=== PATIENT | female | born 1945 | race Caucasian/White ===

== ENCOUNTER 2020-09-23 11:25 | Inpatient (IN) | payer OTHER, SELFPAY ==
[~2020-09-23] VITALS: Ht 162.6 cm; Wt 98.9 kg
[2020-09-23 11:30] VITALS: BP 179/77
--- NOTE | 2020-09-23 11:35 | NUR ---
PT AMB TO BED 4.
--- NOTE | 2020-09-23 11:45 | NUR ---
PT C/O INTERMITTENT RUQ ABDOMINAL PAIN WITH DISTENDED ABDOMEN AND CONSTIPATION FOR THE PAST 3 MONTHS. PT ALSO REPORTS HAVING SOB, +2 PITTING EDEMA ON MINNA ANKLES, AND MOIST COUGH. DENIES N/V/D, FEVER, CHEST PAIN, OR SICK CONTACTS. PT STATES SHE HAD SURGERY 1.5 YEARS AGO ON THE MINNA LOWER LEG BECAUSE HER DR TOLD HER THAT THE SOB IS DUE TO THE POOR CIRCULATION OF THE LEGS. PT CANNOT RECALL THE SURGERY NAME OR THE MEDS THAT SHE IS TAKING FOR HER HEART CONDITION, HTN, OR DM. PMH: DM, HEART CONDITION (PT CANNOT RECALL), HTN, ASTHMA
[2020-09-23] MEDS ORDERED: ALUMINUM HYD/MAG/SIMETHICONE 30 ML UDC PO ONE (12:10)
[2020-09-23] MEDS ORDERED: DICYCLOMINE HCL LIQUID 10 MG/5 ML UDC PO ONE (12:10)
[2020-09-23] MEDS ORDERED: FAMOTIDINE 20 MG TAB PO ONE (12:10)
[2020-09-23 12:23] LABS: BASOPHILS % (AUTO) 0.7 % (0.0-2.0); EOSINOPHILS # (AUTO) 0.2 K/uL (0-0.4); EOSINOPHILS % (AUTO) 3.6 % (0.0-4.0); HEMATOCRIT 35.9 % (36-48); HEMOGLOBIN 11.8 g/dL (12.0-16.0); LYMPHOCYTES # (AUTO) 1.3 K/uL (2.5-16.5); LYMPHOCYTES % (AUTO) 20.9 % (20.5-51.1); MEAN CORPUSCULAR HEMOGLOBIN 30 pg (27-31); MEAN CORPUSCULAR HGB CONC 33 g/dL (33-37); MONOCYTES # (AUTO) 0.6 K/uL (0.8-1.0); MONOCYTES % (AUTO) 9.6 % (1.7-9.3); NEUTROPHILS # (AUTO) 4.1 K/uL (1.8-7.7); NEUTROPHILS % (AUTO) 65.2 % (42.2-75.2); PLATELET COUNT (AUTO) 176 K/uL (140-450); RED BLOOD CELL COUNT(AUTO) 3.91 MIL/uL (4.20-5.40); RED CELL DISTRIBUTION WIDTH 14.5 % (11.6-13.7); WHITE BLOOD COUNT (AUTO) 6.3 K/uL (4.8-10.8)
[2020-09-23 12:49] LABS: ALBUMIN 3.4 g/dL (3.4-5.0); ASPARTATE AMINOTRANSFERASE 20 U/L (15-37); CARBON DIOXIDE 23.1 mmol/L (21-32); CHLORIDE 107 mmol/L (98-107); CREATININE 1.1 mg/dL (0.6-1.3); GLUCOSE 112 mg/dL (74-106); LIPASE 65 U/L (73-393); POTASSIUM 4.1 mmol/L (3.5-5.1); SODIUM SERUM 143 mmol/L (136-145); TOTAL BILIRUBIN 0.7 mg/dL (0.0-1.0); UREA NITROGEN, BLOOD 19 mg/dL (7-18)
--- NOTE | 2020-09-23 13:42 | NUR ---
PT HAS BEEN TAKING BACK FROM CT SCAN VIA .
[2020-09-23] MEDS ORDERED: FUROSEMIDE 40 MG/4 ML VIAL IVP ONE (14:10)
--- NOTE | 2020-09-23 14:27 | NUR ---
PT'S DAUGHTER RAFAEL'S PHONE # [phone] REQUESTED FOR MEDICAL UPDATES. CALLED AND LEFT MESSAGE.
[2020-09-23] MEDS ORDERED: PRIM250T70 PO (15:03)
[2020-09-23] MEDS ORDERED: POTA8TER12 PO (15:03)
[2020-09-23] MEDS ORDERED: LEVO5TAB12 PO (15:03)
[2020-09-23] MEDS ORDERED: CELE200C PO (15:03)
[2020-09-23] MEDS ORDERED: GLIM2TAB PO (15:03)
[2020-09-23] MEDS ORDERED: [UNRECOGNIZED DRUG - CODE] TP (15:03)
[2020-09-23] MEDS ORDERED: ISOS10TA9 PO (15:03)
[2020-09-23] MEDS ORDERED: ASCO-516 PO (15:03)
[2020-09-23] MEDS ORDERED: DONE5TAB6 PO (15:03)
[2020-09-23] MEDS ORDERED: FURO-572 PO (15:03)
[2020-09-23] MEDS ORDERED: EMPA25TA PO (15:03)
[2020-09-23] MEDS ORDERED: ALBU-118 INH (15:03)
[2020-09-23] MEDS ORDERED: MONT10TA35 PO (15:03)
[2020-09-23] MEDS ORDERED: SITA100T8 PO (15:03)
[2020-09-23] MEDS ORDERED: ASPI-1822 PO (15:03)
[2020-09-23] MEDS ORDERED: BENA20TA PO (15:03)
[2020-09-23] MEDS ORDERED: IBAN150T16 PO (15:03)
[2020-09-23] MEDS ORDERED: VITA-415 PO (15:03)
[2020-09-23] MEDS ORDERED: SULF500T6 PO (15:03)
[2020-09-23] MEDS ORDERED: [UNRECOGNIZED DRUG - CODE] PO (15:03)
[2020-09-23] MEDS ORDERED: DICL1GEL19 TP (15:03)
[2020-09-23] MEDS ORDERED: ATOR10TA PO (15:03)
[2020-09-23] MEDS ORDERED: FLUT1POW3 IH (15:03)
[2020-09-23] MEDS ORDERED: LYR75 PO (15:03)
[2020-09-23] MEDS ORDERED: OMEP20EC11 PO (15:03)
--- NOTE | 2020-09-23 15:45 | NUR ---
PT AMBULATES TO THE BATHROOM WITH STEADY GAIT.
[2020-09-23] MEDS ORDERED: MORPHINE SULFATE 2 MG/ML SYR IVP PRN (16:30)
[2020-09-23] MEDS ORDERED: INSULIN LISPRO SLIDING SCALE 100 UNITS/ML VIAL SUBQ PRN (16:30)
[2020-09-23] MEDS ORDERED: ACETAMINOPHEN 325 MG TAB PO PRN (16:30)
[2020-09-23] MEDS ORDERED: DEXTROSE 50% 50 ML SYR IVP PRN (16:30)
[2020-09-23] MEDS ORDERED: ONDANSETRON 4 MG/2 ML VIAL IVP PRN (16:30)
--- NOTE | 2020-09-23 16:38 | NUR ---
Dr. Taylor is evaluating the patient at bedside.
[2020-09-23 17:01] LABS: CREATINE KINASE MB 2.2 ng/mL (0-3.6)
--- NOTE | 2020-09-23 18:50 | NUR ---
DINNER PROVIDED TO PT. PT IS EATING IN THE BED.
--- NOTE | 2020-09-23 19:08 | NUR ---
RECEIVED REPORT FROM DERIAN TAI AND [facility]
--- NOTE | 2020-09-23 19:16 | NUR ---
REPORT GIVEN TO DERIAN BLANDON.
[2020-09-23] MEDS: BLOOD GLUCOSE MONITORING 1 DEV DEV FS SCH ×2 (21:18→21:23)
--- NOTE | 2020-09-24 00:05 | NUR ---
Patient will be admitted to care of DR LARSEN. Admited to [facility]. Will go to room 105B. Belongings list completed. Report to DERIAN CAMARENA.
--- NOTE | 2020-09-24 00:12 | NUR ---
RECEIVED PT FROM ED NURSE. PT ARRIVED ON THE UNIT VIA GURNEY BUT AMBULATED TO THE BED. PT IS A/OX4, SPEECH IS CLEAR, HEAD IS NORMAL CEPHALIC, EQUAL BILATERAL EYEBROWS, SYMMETRICAL SMILE, PMMM. NO JVD NOTED AT THIS TIME. CHEST IS SYMMETRICAL, BREATHING SPONTANEOUSLY, EQUAL, AND UNLABORED ON 2L 02 VIA NC. ABD IS SOFT AND NONTENDER. SKIN IS WARM, DRY, INTACT, 18G IV TO LEFT AC, PATENT, ASYMPTOMATIC. NORMAL SKIN TURGOR NOTED. TELE MONITOR ATTACHED. ORIENTED PT TO ROOM, CALL LIGHT , AND STAFF. MRSA SCREEN COMPLETE. SAFETY PRECAUTIONS IN PLACE.
--- NOTE | 2020-09-24 01:09 | NUR ---
PT IS SLEEPING, NO SIGNS OF DISTRESS.
[2020-09-24 02:49] LABS: CREATINE KINASE MB 1.5 ng/mL (0-3.6)
--- NOTE | 2020-09-24 03:01 | NUR ---
PT IS SLEEPING.
[2020-09-24 04:00] VITALS: BP 128/98
[2020-09-24 06:56] LABS: BASOPHILS # (AUTO) 0.1 K/uL (0.00-0.22); BASOPHILS % (AUTO) 0.8 % (0.0-2.0); EOSINOPHILS # (AUTO) 0.3 K/uL (0-0.4); EOSINOPHILS % (AUTO) 3.9 % (0.0-4.0); HEMATOCRIT 37.4 % (36-48); HEMOGLOBIN 12.4 g/dL (12.0-16.0); LYMPHOCYTES # (AUTO) 1.2 K/uL (2.5-16.5); LYMPHOCYTES % (AUTO) 17.1 % (20.5-51.1); MEAN CORPUSCULAR HEMOGLOBIN 31 pg (27-31); MEAN CORPUSCULAR HGB CONC 33 g/dL (33-37); MEAN CORPUSCULAR VOLUME 92.2 fL (80-94); MONOCYTES # (AUTO) 0.6 K/uL (0.8-1.0); MONOCYTES % (AUTO) 9.3 % (1.7-9.3); NEUTROPHILS # (AUTO) 4.7 K/uL (1.8-7.7); NEUTROPHILS % (AUTO) 68.9 % (42.2-75.2); PLATELET COUNT (AUTO) 178 K/uL (140-450); RED BLOOD CELL COUNT(AUTO) 4.05 MIL/uL (4.20-5.40); RED CELL DISTRIBUTION WIDTH 14.4 % (11.6-13.7); WHITE BLOOD COUNT (AUTO) 6.8 K/uL (4.8-10.8)
[2020-09-24 07:21] LABS: ALBUMIN 3.5 g/dL (3.4-5.0); ANION GAP 15.4 (8-16); ASPARTATE AMINOTRANSFERASE 24 U/L (15-37); CARBON DIOXIDE 27.7 mmol/L (21-32); CHLORIDE 105 mmol/L (98-107); CREATININE 1.1 mg/dL (0.6-1.3); GLUCOSE 91 mg/dL (74-106); MAGNESIUM 1.9 mg/dL (1.8-2.4); POTASSIUM 4.1 mmol/L (3.5-5.1); SODIUM SERUM 144 mmol/L (136-145); TOTAL BILIRUBIN 0.8 mg/dL (0.0-1.0); UREA NITROGEN, BLOOD 18 mg/dL (7-18)
--- NOTE | 2020-09-24 07:30 | NUR ---
RECEIVED REPORT FROM BOTTLE CASER NURSE. PATIENT LYING DOWN IN BED SLEEPING, AROUSABLE BY VOICE. NO DISTRESS NOTED. DENIES ANY PAIN. AAOX4, CALM, COOPERATIVE, APPROPRIATE AFFECT. SKIN COLOR APPROPRIATE TO ETHNICITY, WARM TO TOUCH, SKIN INTACT. IV SITE INTACT, PATENT, AND ON SALINE LOCK. RESPIRATIONS EVEN, UNLABORED, ON ROOM AIR. REVIEWED PLAN OF CARE WITH PATIENT. PATIENT VERBALIZED UNDERSTANDING. SAFETY MEASURES IN PLACE, CALL LIGHT WITHIN REACH. WILL CONTINUE TO MONITOR.
[2020-09-24] MEDS: BLOOD GLUCOSE MONITORING 1 DEV DEV FS SCH ×4 (07:44→20:33)
--- NOTE | 2020-09-24 07:53 | NUR ---
ENDORSED CARE TO AM NURSE. PT IS IN STABLE CONDITION.
[2020-09-24 08:00] VITALS: BP 166/80
[2020-09-24] MEDS ORDERED: BENAZEPRIL 10 MG TAB PO SCH (09:00)
[2020-09-24] MEDS: ASPIRIN 81 MG TAB.CHEW PO SCH (09:03)
[2020-09-24] MEDS: FUROSEMIDE 40 MG/4 ML VIAL IVP SCH ×2 (09:03→20:42)
[2020-09-24] MEDS: ENOXAPARIN 40 MG/0.4 ML SYR SUBQ SCH (09:09)
[2020-09-24 11:25] LABS: CREATINE KINASE MB 1.4 ng/mL (0-3.6)
[2020-09-24] MEDS ORDERED: PSYLLIUM 12.2 GM/PKT PO PRN (11:50)
[2020-09-24 12:00] VITALS: BP 125/63
--- NOTE | 2020-09-24 12:13 | NUR ---
SCHEDULED MEDICATIONS DUE GIVEN. WILL CONTINUE TO MONITOR.
--- NOTE | 2020-09-24 14:53 | NUR ---
PATIENT COMPLAINS OF A HEADACHE, TYLENOL GIVEN AT THIS TIME. WILL CONTINUE TO MONITOR.
[2020-09-24 16:00] VITALS: BP 127/56
--- NOTE | 2020-09-24 17:32 | NUR ---
PATIENT LYING DOWN IN BED. NO COMPLAINTS OF HEADACHE. WILL CONTINUE TO MONITOR.
--- NOTE | 2020-09-24 18:39 | NUR ---
PATIENT COMPLAINS OF CONSTIPATION. METAMUCIL GIVEN AT THIS TIME. WILL CONTINUE TO MONITOR.
--- NOTE | 2020-09-24 19:00 | NUR ---
HD NURSE AT BEDSIDE TO START HEMODIALYSIS. WILL CONTINUE TO MONITOR.
--- NOTE | 2020-09-24 19:20 | NUR ---
GAVE REPORT TO MILK WAGON DRIVER NURSE FOR CONTINUITY OF CARE. PATIENT IN STABLE CONDITION.
--- NOTE | 2020-09-24 19:21 | NUR ---
RECEIVED BEDSIDE ENDORSEMENT FROM AM SHIFT RN. PT IS AAOX4, SITTING ON BED, ON ROOM AIR, NO SOB, LAC 18, INTACT, AMBULATORY, DENIES PAIN, SAFETY MEASURES IN PLACE, PLAN OF CARE DISCUSSED, CALL LIGHT WITHIN REACH.
[2020-09-24 20:00] VITALS: BP_SYST 120; BP_DIAS 61; BP_DIAS 67
[2020-09-24] MEDS: PREGABALIN 25 MG CAP PO SCH (20:39)
[2020-09-24] MEDS: carvediloL 3.125 MG TAB PO SCH (20:39)
--- NOTE | 2020-09-24 20:47 | NUR ---
DUE MEDS GIVEN ORDERED, LASIX NOT GIVEN, BP IS 106/72 HR 70. PT REFUSED HUMALOG 2 UNITS, EXPLAINED RISKS AND BENEFITS, STILL REFUSES. NO DISTRESS. CALL LIGHT WITHIN REACH.
[2020-09-24] MEDS ORDERED: DONEPEZIL 10 MG TAB PO SCH (21:00)
[2020-09-25] VITALS: BP 116/68
--- NOTE | 2020-09-25 | NUR ---
PT SLEEPING ,RESPIRATION EVEN AND UNLABORED.
[2020-09-25 04:00] VITALS: BP 122/63
--- NOTE | 2020-09-25 06:41 | NUR ---
PATIENT HAS BEEN SCREENED AND CATEGORIZED HIGH NUTRITION RISK. PATIENT WILL BE SEEN WITHIN 1-2 DAYS OF ADMISSION. 09/25/20-09/26/20 CELIA GRAHAM MS, RDN
[2020-09-25] MEDS: BLOOD GLUCOSE MONITORING 1 DEV DEV FS SCH ×2 (07:00→11:12)
--- NOTE | 2020-09-25 07:01 | NUR ---
BS 143, NO COVERAGE GIVEN. PT AWAKE, NO DISTRESS, DENIES PAIN, NO SOB, CALL LIGHT WITHIN REACH.
--- NOTE | 2020-09-25 07:02 | NUR ---
RECEIVED REPORT FROM MANAGEMENT SPECIALIST NURSE. PATIENT LYING DOWN IN BED SLEEPING, AROUSABLE BY VOICE. NO DISTRESS NOTED. DENIES ANY PAIN. AAOX4, CALM, COOPERATIVE, APPROPRIATE AFFECT. SKIN COLOR APPROPRIATE TO ETHNICITY, WARM TO TOUCH, SKIN INTACT. IV SITE INTACT, PATENT, AND ON SALINE LOCK. RESPIRATIONS EVEN, UNLABORED, ON ROOM AIR. REVIEWED PLAN OF CARE WITH PATIENT. PATIENT VERBALIZED UNDERSTANDING. SAFETY MEASURES IN PLACE, CALL LIGHT WITHIN REACH. WILL CONTINUE TO MONITOR.
[2020-09-25 08:00] VITALS: BP 137/77
[2020-09-25 08:09] LABS: BASOPHILS % (AUTO) 0.8 % (0.0-2.0); EOSINOPHILS # (AUTO) 0.2 K/uL (0-0.4); HEMATOCRIT 38.9 % (36-48); LYMPHOCYTES # (AUTO) 1.5 K/uL (2.5-16.5); MEAN CORPUSCULAR HEMOGLOBIN 31 pg (27-31); MEAN CORPUSCULAR HGB CONC 34 g/dL (33-37); MEAN CORPUSCULAR VOLUME 91.9 fL (80-94); MONOCYTES # (AUTO) 0.6 K/uL (0.8-1.0); MONOCYTES % (AUTO) 10.8 % (1.7-9.3); NEUTROPHILS # (AUTO) 3.4 K/uL (1.8-7.7); NEUTROPHILS % (AUTO) 58.4 % (42.2-75.2); PLATELET COUNT (AUTO) 186 K/uL (140-450); RED BLOOD CELL COUNT(AUTO) 4.24 MIL/uL (4.20-5.40); RED CELL DISTRIBUTION WIDTH 14.7 % (11.6-13.7); WHITE BLOOD COUNT (AUTO) 5.8 K/uL (4.8-10.8)
[2020-09-25 08:13] LABS: ANION GAP 17.9 (8-16); CARBON DIOXIDE 26.8 mmol/L (21-32); CHLORIDE 101 mmol/L (98-107); CREATININE 1.1 mg/dL (0.6-1.3); GLUCOSE 137 mg/dL (74-106); POTASSIUM 3.7 mmol/L (3.5-5.1); SODIUM SERUM 142 mmol/L (136-145); UREA NITROGEN, BLOOD 20 mg/dL (7-18)
[2020-09-25] MEDS: ENOXAPARIN 40 MG/0.4 ML SYR SUBQ SCH (08:32)
[2020-09-25] MEDS: carvediloL 3.125 MG TAB PO SCH (08:35)
[2020-09-25] MEDS: PREGABALIN 25 MG CAP PO SCH (08:35)
[2020-09-25] MEDS: FUROSEMIDE 40 MG/4 ML VIAL IVP SCH (08:35)
[2020-09-25] MEDS: ASPIRIN 81 MG TAB.CHEW PO SCH (08:35)
--- NOTE | 2020-09-25 08:41 | NUR ---
SCHEDULED MEDICATIONS DUE GIVEN. WILL CONTINUE TO MONITOR.
[2020-09-25] MEDS ORDERED: BENAZEPRIL 10 MG TAB PO SCH (09:00)
[2020-09-25] MEDS ORDERED: PANTOPRAZOLE 40 MG TABEC PO SCH (09:00)
--- NOTE | 2020-09-25 11:12 | NUR ---
PATIENT SITTING IN BED TALKING ON HER PHONE. NO DISTRESS NOTED. CONDITION UNCHANGED. WILL CONTINUE TO MONITOR.
[2020-09-25] MEDS ORDERED: APIX5TAB PO (11:31)
[2020-09-25] MEDS ORDERED: FURO-570 PO (11:31)
[2020-09-25 12:00] VITALS: BP 98/56
--- NOTE | 2020-09-25 12:30 | NUR ---
DISCHARGE INSTRUCTIONS PROVIDED TO PATIENT IN PREFERRED LANGUAGE OF [place]. INSTRUCTIONS ON FOLLOW-UP WITH PCP AND RESEARCH DAIRY FARM SUPERVISOR, NEW/CHANGED MEDICATION REGIMEN AND SIDE EFFECTS, DIET REGIMEN, AND CHF EXACERBATION DISEASE PROCESS/MANAGEMENT. ANSWERED ALL OF PATIENT'S QUESTIONS REGARDING DISCHARGE. IV SITE REMOVED WITH MINIMAL BLOOD AND LUMEN COMPLETELY INTACT. IB BANDS REMOVED. PATIENT TO EAT LUNCH AND THEN DRIVE HER SELF HOME. WILL CONTINUE TO MONITOR.
--- NOTE | 2020-09-25 13:45 | NUR ---
ESCORTED PATIENT DOWN TO ER PARKING LOT WITH STEADY AMBULATION. PATIENT DISCHARGED AT THIS TIME TO HOME IN STABLE CONDITION.
== END 2020-09-25 13:45 | disposition home or self-care (01) | DRG 291 ==
LOC: MED 11:25 → MTU 16:30
PROVIDERS: ADMIT Internal Medicine; ATTEND Internal Medicine
DX: I11.0 Hypertensive heart disease with heart failure (principal); J96.01 Acute respiratory failure with hypoxia; I50.30 Unspecified diastolic (congestive) heart failure; E11.9 Type 2 diabetes mellitus without complications; E78.00 Pure hypercholesterolemia, unspecified; I48.91 Unspecified atrial fibrillation; K57.30 Diverticulosis of large intestine without perforation or abscess without bleeding; G47.30 Sleep apnea, unspecified; E78.5 Hyperlipidemia, unspecified; E66.01 Morbid (severe) obesity due to excess calories; R25.1 Tremor, unspecified; Z20.828 Contact with and (suspected) exposure to other viral communicable diseases; Z79.899 Other long term (current) drug therapy; Z79.82 Long term (current) use of aspirin; Z68.37 Body mass index [BMI] 37.0-37.9, adult
CPT/HCPCS: 36415; 71045; 80048; 80053; 82550; 82553; 82948; 83690; 83735; 83880; 84484; 85025; 87081; 93005; 96374; 99285; J1650; J1940; Q9967

== ENCOUNTER 2021-09-04 10:17 | Emergency (ER) | payer OTHER, SELFPAY ==
[~2021-09-04] VITALS: Ht 162.6 cm; Wt 98.4 kg
[~2021-09-04 10:17] MED LIST: ALBU-118 INH; APIX5TAB PO; ASCO-516 PO; ATOR10TA PO; BENA20TA PO; DONE5TAB6 PO; EMPA25TA PO; FLUT1POW3 IH; FURO-570 PO; GLIM2TAB PO; IBAN150T16 PO; LEVO5TAB12 PO; LYR75 PO; MONT10TA35 PO; OMEP20EC11 PO; POTA8TAB19 PO; PRIM250T70 PO; SITA100T8 PO; SULF500T6 PO; VITA-415 PO; [UNRECOGNIZED DRUG - CODE] PO
[2021-09-04 10:21] VITALS: BP 153/81
--- NOTE | 2021-09-04 10:40 | NUR ---
ERMD at bedside to assess pt
[2021-09-04] MEDS ORDERED: HYDROcodone/APAP 10/325 MG 1 TAB TAB PO STA (10:41)
--- NOTE | 2021-09-04 11:03 | NUR ---
Pt taken to radiology for XRAYs
--- NOTE | 2021-09-04 11:30 | NUR ---
Pt returned from radiology in stable condition
[2021-09-04] MEDS ORDERED: ACET-10509 PO (12:12)
[2021-09-04 12:34] VITALS: BP 142/78
--- NOTE | 2021-09-04 12:34 | NUR ---
Patient discharged with v/s stable. Written and verbal after care instructions given and explained WITH TEACHBACK. Patient alert, oriented and verbalized understanding of instructions. Ambulatory with steady gait. All questions addressed prior to discharge. ID band removed. Patient advised to follow up with PMD. Rx of ACETAMINOPHEN given. Patient educated on indication of medication including possible reaction and side effects. Opportunity to ask questions provided and answered.
== END 2021-09-04 12:34 | disposition home or self-care (01) ==
LOC: MED 10:17
DX: S90.121A Contusion of right lesser toe(s) without damage to nail, initial encounter (principal); S20.211A Contusion of right front wall of thorax, initial encounter; M25.511 Pain in right shoulder; J45.909 Unspecified asthma, uncomplicated; E11.9 Type 2 diabetes mellitus without complications; I10 Essential (primary) hypertension; Z79.899 Other long term (current) drug therapy; Z79.01 Long term (current) use of anticoagulants; W18.2XXA Fall in (into) shower or empty bathtub, initial encounter; Y93.89 Activity, other specified; Y92.002 Bathroom of unspecified non-institutional (private) residence as the place of occurrence of the external cause; Y99.8 Other external cause status
CPT/HCPCS: 71101; 73030; 73630; 99284

== ENCOUNTER 2022-01-15 18:49 | Emergency (ER) | payer OTHER ==
[~2022-01-15] VITALS: Ht 162.6 cm; Wt 94.8 kg
[~2022-01-15 18:49] MED LIST changes: +ACET-10509 PO
[2022-01-15 19:11] VITALS: BP 185/89
[2022-01-15] MEDS ORDERED: TRANEXAMIC ACID 1,000 MG/10 ML VIAL MC ONE (20:25)
--- NOTE | 2022-01-15 23:47 | NUR ---
76 YO/F BIB SELF W C/O BACK UPPER GUM BLEEDING X3 DAYS CONSTANT S/P HAVING CROWNS PLACED IN IN MAY 2021. PT REPORTS BLEEDING WAS ONLY OCCURING WHEN BRUSHING TEETH BUT HAS WORSENED SINCE SATURDAY, SAW PRIMARY DENTIST AND HAD A "PORCELAIN SUBSTANCE PLACED" WHICH HELPED A BIT WITH THE BLEEDING BUT THE THE PORCELAIN FELL OUT AND CONSTANT BLEEDING RE-OCCURED. PT DENIES ANY PAIN, N/V, FEVER, CHILLS. DIZZYNESS OR OTHER SYMPTOMS AT THIS TIME. PT NOTED W ACTIVE BLEEDING FROM L UPPER GUMS W SMALL BLOOD CLOTS. PT DENIES INJURY TO MOUTH/GUMS. PT PROVIDED W GAUZE, ADVISED TO APPLY CONTINUOUS PRESSURE. ERMD MADE AWARE. PMH: HTN, DIABETES, FIBROMYALGIA, RHEUMATOID ALLERGIES: DENIES
--- NOTE | 2022-01-16 00:01 | NUR ---
PT DENIES BEING ON BLOOD THINNERS.
--- NOTE | 2022-01-16 00:35 | NUR ---
PT HAS ONGOING CONTINOUS BLEEING TO GUMS W CLOTS. ERMD MADE AWARE.
[2022-01-16] MEDS ORDERED: LIDOCAINE/EPI 1% 1:100000 20 ML VIAL INJ ONE (01:00)
[2022-01-16] MEDS ORDERED: TRANEXAMIC ACID 1,000 MG/10 ML VIAL MC ONE (01:40)
--- NOTE | 2022-01-16 03:14 | NUR ---
PT REPORTS BLEEDING HAS SLOWED. NO OTHER SYMPTOMS.
[2022-01-16 03:40] VITALS: BP 119/78
--- NOTE | 2022-01-16 03:40 | NUR ---
Patient discharged with v/s stable. Written and verbal after care instructions given and explained. Patient verbalized understanding. Ambulatory with steady gait. All questions addressed prior to discharge. Advised to follow up with PMD.
== END 2022-01-16 03:40 | disposition home or self-care (01) ==
LOC: MED 18:49
DX: K06.8 Other specified disorders of gingiva and edentulous alveolar ridge (principal); K91.841 Postprocedural hemorrhage of a digestive system organ or structure following other procedure; I10 Essential (primary) hypertension
CPT/HCPCS: 99283; J2001; J3490

== ENCOUNTER 2022-11-15 18:44 | Emergency (ER) | payer OTHER, MEDICAID ==
[~2022-11-15] VITALS: Ht 165.1 cm; Wt 83.9 kg
[2022-11-15 18:55] VITALS: BP 155/67
--- NOTE | 2022-11-15 19:38 | NUR ---
X-Ray at bedside.
--- NOTE | 2022-11-15 20:19 | NUR ---
COVID AND FLU SWABS COLLECTED AND SENT TO LAB
--- NOTE | 2022-11-15 20:47 | NUR ---
77YR OLD FEMALE BIB SELF C/O COUGH AND SOB [id number]. PT DX WITH BRONCHITIS FROM PMD . PT STATES SHE FINISHED UP ABX NO REFIELF. SOB GETTING WORSE. PT WAS 90% RA ON ARRIVAL 1.5L O2 PLACED VIA NC. SPO2 96%. SPEAKING IN FULL SENTENCES. ON BEDISIDE CARIDAC MONITOR. HOB ELEVATED. PT IS [place] SPEAKING. NKDA DM HTN
[2022-11-15] MEDS ORDERED: AMOX1TAB7 PO (21:50)
[2022-11-15] MEDS ORDERED: BENZ200C4 PO (21:50)
[2022-11-15] MEDS ORDERED: AMOXIL/CLAVULANATE 875/125 MG 1 TAB ONE ×2 (22:00→22:06)
[2022-11-15] MEDS ORDERED: CRUSHER, PILL MC ONE (22:03)
[2022-11-15] MEDS: AMOXIL/CLAVULANATE 500/125 MG 1 TAB PO ONE (22:12)
[2022-11-15] MEDS: AMOXIL/CLAVULANATE 875/125 MG 1 TAB PO ONE (22:13)
== END 2022-11-15 22:10 | disposition home or self-care (01) ==
LOC: MED 18:44
DX: J40 Bronchitis, not specified as acute or chronic (principal); Z20.822 Contact with and (suspected) exposure to COVID-19; E11.9 Type 2 diabetes mellitus without complications; I10 Essential (primary) hypertension; Z79.899 Other long term (current) drug therapy; Z79.84 Long term (current) use of oral hypoglycemic drugs
CPT/HCPCS: 71045; 87426; 87804; 99284; Q0092

== ENCOUNTER 2022-11-20 15:41 | Emergency (ER) | payer OTHER, MEDICAID ==
[~2022-11-20] VITALS: Ht 157.5 cm; Wt 86.2 kg
[~2022-11-20 15:41] MED LIST changes: +AMOX1TAB7 PO; +BENZ200C4 PO
[2022-11-20 15:45] VITALS: BP 144/80
--- NOTE | 2022-11-20 16:04 | NUR ---
RT AT BEDSIDE
[2022-11-20] MEDS: ALBUTEROL SULFATE/IPRATROPIU 3 ML SOL IH ONE (16:24)
[2022-11-20] MEDS: ALBUTEROL 0.083% 2.5 MG/3 ML NEBU INH ONE (16:25)
[2022-11-20] MEDS: predniSONE 20 MG TAB PO ONE (16:28)
--- NOTE | 2022-11-20 16:29 | NUR ---
77/F PRESENTS TO ED WITH C/O PRODUCTIVE COUGH X1 MONTH AND SOB SINCE LAST NIGHT. PATIENT STATES SHE WAS SEEN HERE ON SATURDAY FOR SYMPTOMS AND GIVEN MULTIPLE RX FOR COUGH MEDICATIONS BUT STATES SYMPTOMS HAVE NOT IMPROVED. PATIENT REPORTS SHE REACHED OUT TO HER PCP OFFICE TODAY TO INFORM OF HER SYMPTOMS AND WAS TOLD TO COME TO ED FOR FURTHER EVALUATION. PATIENT O2 96% ON ROOM AIR UPON ARRIVAL, PATIENT PLACED ON BEDSIDE KNOCKER OFF.
--- NOTE | 2022-11-20 16:32 | NUR ---
DR. SALEH EVALUATING PATIENT BEDSIDE
[2022-11-20] MEDS ORDERED: PRED20TA5 PO (16:41)
[2022-11-20] MEDS ORDERED: ALBU0.0912 INH (16:41)
--- NOTE | 2022-11-20 16:54 | NUR ---
Patient discharged with v/s stable. Written and verbal after care instructions ABOUT SOB AND COUGH given and explained. Patient alert, oriented and verbalized understanding of instructions. Ambulatory with steady gait. All questions addressed prior to discharge. ID band removed. Patient advised to follow up with PMD. Rx of PROVENTIL HFA AND DELTASONE given. Patient educated on indication of medication including possible reaction and side effects. Opportunity to ask questions provided and answered.
== END 2022-11-20 16:54 | disposition home or self-care (01) ==
LOC: MED 15:41
DX: R05.9 Cough, unspecified (principal); R06.02 Shortness of breath; E11.9 Type 2 diabetes mellitus without complications; I10 Essential (primary) hypertension; Z79.899 Other long term (current) drug therapy
CPT/HCPCS: 94640; 94760; 99283; J7512; J7613

== ENCOUNTER 2022-12-24 16:47 | Inpatient (IN) | payer OTHER, MEDICAID ==
[~2022-12-24] VITALS: Ht 162.6 cm; Wt 98.4 kg
[~2022-12-24 16:47] MED LIST changes: +ALBU0.0912 INH; +PRED20TA5 PO
[2022-12-24 16:51] VITALS: BP 150/64
--- NOTE | 2022-12-24 17:04 | NUR ---
PT AMB TO BED 7
--- NOTE | 2022-12-24 17:26 | NUR ---
77YO FEMALE PT C/O INCREASED SOB AND COUGH X3DAYS. REPORTS MULTIPLE DX BRONCHITIS W/ INITIAL ONSET H1LYMEYS AND INTERMITTENT PRESSURED CHEST PAIN. MINNA CLEAR SOUNDS. MOIST COUGH PRESENT. DENIES N/V/D, FEVER, CHILLS OR RELIEF AFTER ANITBIOTICS. PT AAOX4, ON POWERHOUSE ENGINEER. O2 93%-RA HX:CHF, HTN, DM, RHEUMATOID ARTHRITIS NKA
--- NOTE | 2022-12-24 17:31 | NUR ---
MIGUE HA AT BEDSIDE FOR EVALUATION
[2022-12-24] MEDS ORDERED: IPRATROPIUM 0.02% 0.5 MG/2.5 ML NEBU INH ONE (17:45)
[2022-12-24] MEDS ORDERED: ALBUTEROL 0.083% 2.5 MG/3 ML NEBU INH ONE (17:45)
--- NOTE | 2022-12-24 17:50 | NUR ---
pt swabbed for covid(hamida) and flu. walked and handed to lab
--- NOTE | 2022-12-24 17:53 | NUR ---
RT AT BEDSIDE
--- NOTE | 2022-12-24 17:55 | NUR ---
LAB AT BEDSIDE
--- NOTE | 2022-12-24 18:07 | NUR ---
XRAY AT BEDSIDE
[2022-12-24 18:33] LABS: BASOPHILS % (AUTO) 0.5 % (0.0-2.0); EOSINOPHILS # (AUTO) 0.2 K/uL (0-0.4); EOSINOPHILS % (AUTO) 3.4 % (0.0-4.0); HEMATOCRIT 37.9 % (36-48); HEMOGLOBIN 12.7 g/dL (12.0-16.0); LYMPHOCYTES # (AUTO) 1.6 K/uL (2.5-16.5); LYMPHOCYTES % (AUTO) 22.8 % (20.5-51.1); MEAN CORPUSCULAR HEMOGLOBIN 31 pg (27-31); MEAN CORPUSCULAR HGB CONC 34 g/dL (33-37); MEAN CORPUSCULAR VOLUME 90.9 fL (80-94); MONOCYTES # (AUTO) 0.6 K/uL (0.8-1.0); MONOCYTES % (AUTO) 8.4 % (1.7-9.3); NEUTROPHILS # (AUTO) 4.5 K/uL (1.8-7.7); NEUTROPHILS % (AUTO) 64.9 % (42.2-75.2); PLATELET COUNT (AUTO) 184 K/uL (140-450); RED BLOOD CELL COUNT(AUTO) 4.17 MIL/uL (4.20-5.40); WHITE BLOOD COUNT (AUTO) 6.9 K/uL (4.8-10.8)
[2022-12-24 18:48] LABS: ALBUMIN 3.6 g/dL (3.4-5.0); ANION GAP 15.3 (8-16); ASPARTATE AMINOTRANSFERASE 8 U/L (15-37); CARBON DIOXIDE 25.3 mmol/L (21-32); CHLORIDE 101 mmol/L (98-107); CREATININE 1.1 mg/dL (0.6-1.3); GLUCOSE 370 mg/dL (74-106); POTASSIUM 4.6 mmol/L (3.5-5.1); SODIUM SERUM 137 mmol/L (136-145); TOTAL BILIRUBIN 0.5 mg/dL (0.0-1.0); UREA NITROGEN, BLOOD 21 mg/dL (7-18)
[2022-12-24 18:52] LABS: LIPASE 73 U/L (73-393)
--- NOTE | 2022-12-24 18:55 | NUR ---
unable to complete med req at this time, pt unable to recall meds.
--- NOTE | 2022-12-24 19:29 | NUR ---
REPORT GIVEN TO KENNEDY MENARD. TRANSFER OF CARE AT THIS TIME
[2022-12-24] MEDS ORDERED: FUROSEMIDE 40 MG/4 ML VIAL IVP ONE (19:50)
[2022-12-24] MEDS ORDERED: ACETAMINOPHEN 325 MG TAB PO PRN (20:25)
[2022-12-24] MEDS ORDERED: HYDROcodone/APAP 5/325 MG 1 TAB TAB PO PRN (20:25)
[2022-12-24] MEDS ORDERED: MORPHINE SULFATE 2 MG/ML SYR IVP PRN (20:25)
[2022-12-24] MEDS ORDERED: ONDANSETRON 4 MG/2 ML VIAL IVP PRN (20:25)
[2022-12-24] MEDS ORDERED: ALBUTEROL 0.083% 2.5 MG/3 ML NEBU INH PRN (20:25)
[2022-12-24] MEDS ORDERED: predniSONE 20 MG TAB PO PRN (20:35)
--- NOTE | 2022-12-24 20:39 | NUR ---
ATTEMPTED MEDICATION RECONCILATION, PT UNABLE TO RECALL MEDIACATIONS.
[2022-12-24] MEDS ORDERED: FUROSEMIDE 40 MG/4 ML VIAL IVP SCH (21:00)
--- NOTE | 2022-12-24 21:10 | NUR ---
Patient will be admitted to care of Dr. Bernal. Admited to Telemetry. Will go to room 125A. Belongings list completed. Report to DERIAN Luna.
--- NOTE | 2022-12-24 21:20 | NUR ---
PATIENT WAS BROUGHT TO MST UNIT FROM ER AWAKE ALERT AND ORIENTED X4. CC: COUGH, SOB. DX: CHF EXACERBATION. NO DISTRESS NOTED. ON 3L O2 VIA NC SATING 100%. SKIN INTACT. PATIENT IS AMBULATORY. IV ACCESS ON THE LEFT AC 20 GAUGE INTACT AND PATENT SALINE LOCK. MRSA SCREENING DONE. WHEELS OF BED LOCKED. CALL LIGHT WITHIN REACH.
[2022-12-24] MEDS: PREGABALIN 25 MG CAP PO SCH (21:46)
[2022-12-24] MEDS: MONTELUKAST SODIUM 10 MG TAB PO SCH (21:46)
[2022-12-24] MEDS: ATORVASTATIN 20 MG TAB PO SCH (21:46)
--- NOTE | 2022-12-24 21:46 | NUR ---
ALL SCHEDULED MEDICATIONS DUE ADMINISTERED.
[2022-12-24] MEDS ORDERED: DEXTROSE 50% 50 ML SYR IVP PRN (23:40)
[2022-12-25] VITALS: BP 133/70
--- NOTE | 2022-12-25 00:02 | NUR ---
PATIENT COMPLAINED OF COUGHING. NOTIFIED DR PRINCE AWAITING FOR REPLY.
[2022-12-25] MEDS: ALBUTEROL 0.083% 2.5 MG/3 ML NEBU INH SCH ×4 (01:15→20:39)
[2022-12-25 04:00] VITALS: BP 114/59
[2022-12-25 05:38] LABS: BASOPHILS % (AUTO) 0.5 % (0.0-2.0); EOSINOPHILS # (AUTO) 0.3 K/uL (0-0.4); EOSINOPHILS % (AUTO) 3.6 % (0.0-4.0); HEMATOCRIT 37.2 % (36-48); HEMOGLOBIN 12.6 g/dL (12.0-16.0); LYMPHOCYTES # (AUTO) 1.6 K/uL (2.5-16.5); MEAN CORPUSCULAR HEMOGLOBIN 31 pg (27-31); MEAN CORPUSCULAR HGB CONC 34 g/dL (33-37); MEAN CORPUSCULAR VOLUME 90.7 fL (80-94); MONOCYTES # (AUTO) 0.6 K/uL (0.8-1.0); MONOCYTES % (AUTO) 7.8 % (1.7-9.3); NEUTROPHILS # (AUTO) 5.1 K/uL (1.8-7.7); NEUTROPHILS % (AUTO) 67.1 % (42.2-75.2); PLATELET COUNT (AUTO) 182 K/uL (140-450); WHITE BLOOD COUNT (AUTO) 7.7 K/uL (4.8-10.8)
[2022-12-25] MEDS: BLOOD GLUCOSE MONITORING 1 DEV DEV FS SCH ×4 (06:36→20:43)
--- NOTE | 2022-12-25 06:36 | NUR ---
PATIENT BLOOD SUGAR CHECK WAS 253. PATIENT REFUSED HUMALOG INSULIN. EXPLAINED THE RISK AND BENEFITS BUT PATIENT STATED "I NEVER USE INSULIN IN MY BODY".
[2022-12-25] MEDS: INSULIN LISPRO SLIDING SCALE 100 UNITS/ML VIAL SUBQ PRN (06:37)
[2022-12-25 06:45] LABS: ALBUMIN 3.6 g/dL (3.4-5.0); ANION GAP 16.3 (8-16); ASPARTATE AMINOTRANSFERASE 3 U/L (15-37); CARBON DIOXIDE 25.8 mmol/L (21-32); CHLORIDE 101 mmol/L (98-107); CREATININE 1.1 mg/dL (0.6-1.3); GLUCOSE 253 mg/dL (74-106); MAGNESIUM 1.7 mg/dL (1.8-2.4); POTASSIUM 4.1 mmol/L (3.5-5.1); SODIUM SERUM 139 mmol/L (136-145); TOTAL BILIRUBIN 0.7 mg/dL (0.0-1.0)
--- NOTE | 2022-12-25 07:28 | NUR ---
ENDORSED PATIENT TO DAY SHIFT NURSE FOR CONTINUITY OF CARE. PT STABLE.
[2022-12-25 07:30] LABS: UREA NITROGEN, BLOOD 19 mg/dL (7-18)
--- NOTE | 2022-12-25 07:30 | NUR ---
RECEIVED REPORT FROM [facility] NURSE. PT A/O X3. ABLE TO SPEAK PARAGUAYAN BUT PREFERS DIVEHI. PT C/O STATING "I NEVER TAKE INSULIN, WHY THEY TRY TO GIVE ME INSULIN!" EXPLAINED TO PT, PT HAS RIGHT TO REFUSE, EXPLAIN REASON FOR MEDICATION. TELE, SB/SR. 3L NC. 2 GM SODIUM DIET. LAC #20 SL. SKIN INTACT. NEEDS ALL MET AT THIS TIME. ALL SAFETY MEASURES IN PLACE.
[2022-12-25 08:00] VITALS: BP 124/48
[2022-12-25] MEDS ORDERED: CRUSHER, PILL MC ONE (08:50)
[2022-12-25] MEDS ORDERED: BENAZEPRIL 10 MG TAB PO SCH (09:00)
[2022-12-25] MEDS ORDERED: ENOXAPARIN 40 MG/0.4 ML SYR SUBQ SCH ×2 (09:00)
[2022-12-25] MEDS: APIXABAN 2.5 MG TAB PO SCH ×2 (09:00→20:39)
--- NOTE | 2022-12-25 09:07 | NUR ---
PATIENT HAS BEEN SCREENED AND CATEGORIZED MODERATE NUTRITION RISK. PATIENT WILL BE SEEN WITHIN 3-5 DAYS OF ADMISSION. FNS REFERRAL RECEIVED ON 12/25/22 FOR UNCONTROLLED DIABETES . REFERRAL DOES NOT MEET HIGH RISK CRITERIA PER HOSPITAL POLICY. PT WILL BE SEEN AND ASSESSED ACCORDING TO THE NUTRITION CARE POLICY. REVIEWED BY TAMELA SMART RD
[2022-12-25] MEDS: DONEPEZIL 10 MG TAB PO SCH (09:28)
[2022-12-25] MEDS: GLIMEPIRIDE 2 MG TAB PO SCH (09:28)
[2022-12-25] MEDS: POTASSIUM CHLORIDE 10 MEQ TABER PO SCH (09:29)
[2022-12-25] MEDS: PREGABALIN 25 MG CAP PO SCH ×2 (09:29→20:35)
[2022-12-25] MEDS: FUROSEMIDE 40 MG/4 ML VIAL IVP SCH ×2 (09:30→20:35)
--- NOTE | 2022-12-25 09:30 | NUR ---
PT C/O COUGHING AND STATES, "I HAVE A COUGH" AND STATES, "WHEN I GET HERE, I GET WORSE". THERAPEUTIC COMMUNICATION GIVEN AND ACTIVE LISTENING. EXPLAINED WILL CONTACT MD REGARDING PT'S CONCERN. MD CONTACTED AND MD ORDER FOR NEW MEDICATION FOR COUGH. SEE NEW ORDERS. REASSURED PT OF NEW ORDER. PT CALM. RESTING COMFORTABLY ON 2L NC. O2 SATURATION @ 94%. ALL NEEDS MET. ALL QUESTIONS ANSWERED AT THIS TIME. ECHO BEING COMPLETED AT BEDSIDE. NEEDS ALL MET. ALL SAFETY MEASURES IN PLACE.
--- NOTE | 2022-12-25 11:46 | NUR ---
PT WITH ELEVATED BLOOD GLUCOSE. PT STATES SHE TAKES "JANUVIA" FOR HER BLOOD GLUCOSE. PT REFUSING INSULIN AND REQUESTING TO TAKE THE SAME MEDICATIONS SHE DOES AT HOME. CONTACTED DR. CONTRERAS REGARDING PT REQUEST AND BLOOD GLUCOSE RESULTS AND DR. CONTRERAS WITH NEW ORDERS FOR JANUVIA. EXPLAINED TO PT REGARDING 'S ORDERS. PT NO LONGER UPSET, RESTING COMFORTABLY. NEEDS ALL MET. DENIES PAIN. ALL SAFETY MEASURES IN PLACE.
[2022-12-25] MEDS ORDERED: BENZONATATE 100 MG CAPLF PO PRN (11:50)
[2022-12-25 12:00] VITALS: BP 137/48
[2022-12-25 16:00] VITALS: BP 119/59
--- NOTE | 2022-12-25 16:13 | NUR ---
CONTACTED DR. CONTRERAS REGARDING PT REQUESTING STOOL SOFTNER. ORDERS INPUTTED.
--- NOTE | 2022-12-25 16:45 | NUR ---
PHARMACY ORDER CLARIFICATION. CONTACTED MD REGARDING LOVENOX AND ELIQUIS. MD ORDER TO DISCONTINUE LOVENOX AND CONTINUE ELIQUIS. PHARMACY NOTIFIED AND PHARMACY CARRIED OUT ORDERS.
--- NOTE | 2022-12-25 19:22 | NUR ---
BEDSIDE REPORT GIVEN TO NIGHTSHIFT NURSEIVETH FOR CONTINUITY OF CARE.
--- NOTE | 2022-12-25 19:34 | NUR ---
PATIENT AWAKE ALERT SITTING ON THE BED BROWSING HER CELLPHONE. NO SOB NOTED ON ROOM AIR. DENIES PAIN. ABLE TO COMMUNICATE WITH HER NEEDS. CALL LIGHT ON EASY REACH.
[2022-12-25 20:00] VITALS: BP 115/64
[2022-12-25] MEDS: MONTELUKAST SODIUM 10 MG TAB PO SCH (20:35)
--- NOTE | 2022-12-25 20:35 | NUR ---
ALL SCHEDULED MEDICATIONS DUE GIVEN.
[2022-12-25] MEDS: ATORVASTATIN 20 MG TAB PO SCH (20:36)
--- NOTE | 2022-12-25 20:44 | NUR ---
CHECKED BLOOD SUGAR WAS 300. PATIENT REFUSED INSULIN.
[2022-12-26] VITALS: BP 133/73
[2022-12-26] MEDS: ALBUTEROL 0.083% 2.5 MG/3 ML NEBU INH SCH ×4 (01:00→19:23)
--- NOTE | 2022-12-26 01:39 | NUR ---
PT REFUSED SCHEDULED BREATHING TX, INDICATED SHE WOULD RATHER SLEEP. PT SPO2 97% ON 2L NC, NO RESPIRATORY DISTRESS NOTED.
[2022-12-26 04:00] VITALS: BP 120/60
--- NOTE | 2022-12-26 06:37 | NUR ---
BLOOD SUGAR WAS 283, PATIENT REFUSED INSULIN.
[2022-12-26] MEDS: BLOOD GLUCOSE MONITORING 1 DEV DEV FS SCH ×4 (06:42→20:40)
--- NOTE | 2022-12-26 07:47 | NUR ---
GAVE REPORT TO AM NURSE MARLY FOR CONTINUITY OF CARE. POC DISCUSSED.
[2022-12-26 08:00] VITALS: BP 151/72
[2022-12-26] MEDS: methylPREDNISolone SS 40 MG/ML VIAL IVP SCH ×2 (09:49→21:09)
[2022-12-26] MEDS: FUROSEMIDE 40 MG/4 ML VIAL IVP SCH ×2 (09:50→21:12)
[2022-12-26] MEDS: DOCUSATE SODIUM 100 MG GELCAP PO SCH (09:57)
[2022-12-26] MEDS: GLIMEPIRIDE 2 MG TAB PO SCH (09:58)
[2022-12-26] MEDS: PREGABALIN 25 MG CAP PO SCH ×2 (09:59→21:12)
[2022-12-26] MEDS: DONEPEZIL 10 MG TAB PO SCH (10:01)
[2022-12-26] MEDS: POTASSIUM CHLORIDE 10 MEQ TABER PO SCH (10:01)
[2022-12-26] MEDS: APIXABAN 2.5 MG TAB PO SCH ×2 (10:05→21:16)
--- NOTE | 2022-12-26 11:15 | NUR ---
DC PLANN[age] YRS OLD FEMALE PATIENT WAS ADMITTED FROM HOME WITH A DX OF CHF. PATIENT HAS A HX OF DM, HTN, AND RHEUMATOID ARTHRITIS. ADMINISTERED IV LASIX AND CONTINUED HOME MEDS ON O2 3L/NC SATING 94% .CONSULTED WITH MAIL RIDER DR L[place]ON . RECEIVED A CALL FROM [facility] SPOKE WITH MARITZA RICE PT'S CLINICAL SHE PROVIDE THE PENDING AUTH # [id number] CM TO FOLLOW Addendum: 01/01/23 at 1519 by Tati Hager CM RECEIVED A CALL FROM MARI OF [facility] INQUIRING IF THE PATIENT IS STILL IN HOUSE. INFORMED MARI THAT PATIENT WILL BE DISCHARGING TODAY WITH HOME O2.
[2022-12-26 12:00] VITALS: BP 145/72
[2022-12-26] MEDS: INSULIN LISPRO SLIDING SCALE 100 UNITS/ML VIAL SUBQ PRN ×2 (12:30→21:18)
[2022-12-26] MEDS ORDERED: MAGNESIUM OXIDE 400 MG TAB PO SCH (13:13)
--- NOTE | 2022-12-26 15:49 | NUR ---
DC PLANNING ASSESSMENT COMPLETE PLEASE REFER TO ASSESSMENT FOR DETAILS. PT REPORTS TENTATIVE DC PLAN IS TO RETURN HOME WITH FAMILY PROVIDING TRANSPORTATION, WHEN MEDICALLY STABLE.
[2022-12-26 16:00] VITALS: BP 146/74
[2022-12-26] MEDS: amLODIPine 5 MG TAB PO SCH (16:22)
--- NOTE | 2022-12-26 16:26 | NUR ---
12/26/22 RD INITIAL ASSESSMENT COMPLETED PLEASE REFER TO NUTRITION ASSESSMENT UNDER CARE ACTIVITY FOR ESTIMATED NUTRITIONAL NEEDS. 1. CONTINUE CCHO 60 GM, CARDIAC DIET TOLERATED 2. PROVIDED NUTRITION EDUCATION AND HANDOUTS FOR CHF AND DM 3. RD TO FOLLOW-UP 7 DAYS, LOW RISK REVIEWED BY TAMELA SMART RD
[2022-12-26] MEDS ORDERED: INSULIN LISPRO 100 UNITS/ML VIAL SUBQ SCH (18:00)
--- NOTE | 2022-12-26 19:09 | NUR ---
ENDORSE PATIENT IN STABLE CONDITION TO PM SHIFT NURSE THAT IV SALINE LOCK AT L. AC PATENT. PATIENT'S MOST RECENT ACCUCHECK READ IS 489 AND PATIENT AGREE TO TAKE INSULIN.
--- NOTE | 2022-12-26 19:30 | NUR ---
RECEIVED REPORT FROM DAY SHIFT NURSE LEN FOR CONTINUITY OF CARE. PATIENT IS A&O X4. PATIENT IS ON 3L NC, BREATHING IS NORMAL WITH SYMMETRICAL RISE AND FALL OF CHEST. IV IS A 20G LAC; NO FLUIDS RUNNING AT THIS TIME (SALINE LOCKED). PATIENT IS AWAKE, LYING SEMI-FOWLERS IN BED. BED IS IN LOWEST POSITION, WHEELS LOCKED, CALL LIGHT IN PLACE. WILL CONTINUE TO OBSERVE PATIENT.
[2022-12-26 20:00] VITALS: BP 158/87
[2022-12-26] MEDS ORDERED: INSULIN LANTUS 100 UNITS/ML 10 ML VIAL SUBQ SCH (21:00)
[2022-12-26] MEDS: MONTELUKAST SODIUM 10 MG TAB PO SCH (21:13)
[2022-12-26] MEDS: ATORVASTATIN 20 MG TAB PO SCH (21:13)
--- NOTE | 2022-12-26 22:30 | NUR ---
OBTAINED PATIENT'S BS. BS WAS 543, NOTIFIED DAG SPRAYER PHYSICIAN DR. SHEN. ORDERED LANTUS 15UNITS QHS AND HUMALOG PER SLIDING SCALE. PUT LANTUS ORDER IN AND ADMINISTERED HUMALOG 10 UNITS TO PATIENT AND LANTUS 15 UNITS. PATIENT TOLERATED MEDICATION WELL. 2100 MEDICATIONS WERE ALSO GIVEN TO PATIENT. PATIENT TOLERATED MEDICATIONS WELL WITHOUT ANY DIFFICULTY WITH IV SITE OR WITH SWALLOWING. WILL CONTINUE TO OBSERVE PATIENT.
[2022-12-27] VITALS: BP 105/78
[2022-12-27] MEDS: ALBUTEROL 0.083% 2.5 MG/3 ML NEBU INH SCH ×4 (01:00→20:10)
[2022-12-27 04:00] VITALS: BP 104/80
--- NOTE | 2022-12-27 04:00 | NUR ---
PATIENT SLEPT THROUGHOUT THE NIGHT. BREATHING IS NORMAL WITH SYMMETRICAL RISE AND FALL OF CHEST. WILL CONTINUE TO OBSERVE PATIENT.
[2022-12-27] MEDS: INSULIN LISPRO SLIDING SCALE 100 UNITS/ML VIAL SUBQ PRN ×5 (06:30→20:49)
[2022-12-27] MEDS: BLOOD GLUCOSE MONITORING 1 DEV DEV FS SCH ×4 (06:30→20:36)
--- NOTE | 2022-12-27 06:50 | NUR ---
PATIENT'S BS WAS 451. ADMINISTERED 10 UNITS OF HUMALOG AND MESSAGED DR. SHEN ASKING IF ANYMORE INSULIN SHOULD BE ADMINISTERED. PENDING RESPONSE.
--- NOTE | 2022-12-27 07:17 | NUR ---
ENDORSED TO DAY SHIFT NURSE HIGINIO FOR CONTINUITY OF CARE. PATIENT IS STABLE.
[2022-12-27 08:00] VITALS: BP 123/63
[2022-12-27] MEDS: FUROSEMIDE 40 MG/4 ML VIAL IVP SCH ×2 (09:30→20:21)
[2022-12-27] MEDS: GLIMEPIRIDE 2 MG TAB PO SCH (09:31)
[2022-12-27] MEDS: DOCUSATE SODIUM 100 MG GELCAP PO SCH ×2 (09:31→20:20)
[2022-12-27] MEDS: amLODIPine 5 MG TAB PO SCH (09:31)
[2022-12-27] MEDS: APIXABAN 2.5 MG TAB PO SCH ×2 (09:38→20:23)
[2022-12-27] MEDS: PREGABALIN 25 MG CAP PO SCH ×2 (09:38→20:20)
[2022-12-27] MEDS: POTASSIUM CHLORIDE 10 MEQ TABER PO SCH (09:38)
[2022-12-27] MEDS: methylPREDNISolone SS 40 MG/ML VIAL IVP SCH ×2 (09:39→20:21)
[2022-12-27] MEDS: DONEPEZIL 10 MG TAB PO SCH (09:39)
[2022-12-27] MEDS: INSULIN LISPRO 100 UNITS/ML VIAL SUBQ ONE ×2 (11:45→11:53)
--- NOTE | 2022-12-27 11:46 | NUR ---
PATIENT REFUSES HUMALOG INSULIN PRE MEAL 5 UNITS WELL COVERAGE INSULIN FOR THE MEAL AND SAYS SHE WAS GIVEN INSULIN YESTERDAY AND IT MADE HER BLOOD SUGAR HIGHER FOR HER RATIONALE TO NOT TAKING IT. EDUCATION ABOUT REFUSAL DIABETIC KETOACIDOSIS / COMA AND LOSS OF CONSCIOUSNESS. PATIENT VERBALIZES UNDERSTANDING.
--- NOTE | 2022-12-27 11:50 | NUR ---
PATIENT NOW SAYS SHE WILL TAKE INSULIN PRE-MEAL 5 UNITS PLUS COVERAGE PER INSEMINATOR, DEVON.
[2022-12-27 12:00] VITALS: BP 114/56
[2022-12-27 16:00] VITALS: BP 126/57
[2022-12-27] MEDS ORDERED: INSULIN LISPRO 100 UNITS/ML VIAL SUBQ SCH (17:00)
--- NOTE | 2022-12-27 19:30 | NUR ---
RECEIVED REPORT FROM DAY SHIFT NURSE HIGINIO FOR CONTINUITY OF CARE. PATIENT IS A&O X4. PATIENT IS ON 3L NC, BREATHING IS NORMAL WITH SYMMETRICAL RISE AND FALL OF CHEST. IV IS A 20G LAC; NO FLUIDS RUNNING AT THIS TIME (SALINE LOCKED). PATIENT IS AWAKE, LYING SEMI-FOWLERS IN BED. BED IS IN LOWEST POSITION, WHEELS LOCKED, CALL LIGHT IN PLACE. WILL CONTINUE TO OBSERVE PATIENT.
[2022-12-27 20:00] VITALS: BP 112/58
[2022-12-27] MEDS: MONTELUKAST SODIUM 10 MG TAB PO SCH (20:20)
[2022-12-27] MEDS: ATORVASTATIN 20 MG TAB PO SCH (20:21)
[2022-12-27] MEDS: INSULIN LANTUS 100 UNITS/ML 10 ML VIAL SUBQ SCH (20:40)
--- NOTE | 2022-12-27 22:00 | NUR ---
PATIENT REFUSED COLACE DURING DAY SHIFT, BUT REQUESTED TO TAKE WITH HER NIGHT TIME MEDICATION. SHE STATED THAT SHE TAKES HER METAMUCIL AT NIGHT. I INFORMED THE PATIENT THAT THIS MEDICATION WAS NOT METAMUCIL, BUT COLACE; WHICH WORKS A STOOL SOFTENER. PATIENT ASKED IF IT WAS TO HELP HER POOP. I INFORMED THAT IT WAS. SHE SAID THEN TO GIVE IT TO HER AT NIGHT. SINCE THE MEDICATION WAS NOT ADMINSTERED DURING THE DAY SHIFT; I ADMINISTERED THE COLACE WITH HER OTHER MEDICATIONS PER PATIENT'S REQUEST. WILL INFORM DAY SHIFT NURSE OF PATIENT'S REQUEST AND MEDICATION ADMINISTRATION.
[2022-12-28] VITALS: BP 124/53
[2022-12-28] MEDS: ALBUTEROL 0.083% 2.5 MG/3 ML NEBU INH SCH ×4 (01:46→21:09)
[2022-12-28 04:00] VITALS: BP 138/52
[2022-12-28] MEDS: BLOOD GLUCOSE MONITORING 1 DEV DEV FS SCH ×4 (06:54→21:39)
[2022-12-28] MEDS: INSULIN LISPRO 100 UNITS/ML VIAL SUBQ SCH ×3 (06:58→18:03)
--- NOTE | 2022-12-28 07:15 | NUR ---
ENDORSED TO DAY SHIFT NURSE HIGINIO FOR CONTINUITY OF CARE. PATIENT IS STABLE.
--- NOTE | 2022-12-28 07:15 | NUR ---
PATIENT SLEPT THROUGHOUT THE NIGHT. 0730 BS WAS 381; SCHEDULED HUMALOG 8 UNITS WAS GIVEN TO PATIENT. ENDORSED TO DAY SHIFT NURSE TO CHECK BS AGAIN AFTER BREAKFAST TO SEE IF ANOTHER DOSE IS NEEDED.
[2022-12-28 08:00] VITALS: BP 113/59
[2022-12-28] MEDS: INSULIN LISPRO SLIDING SCALE 100 UNITS/ML VIAL SUBQ PRN ×4 (08:53→21:43)
[2022-12-28] MEDS: APIXABAN 2.5 MG TAB PO SCH ×2 (08:56→21:40)
[2022-12-28] MEDS: methylPREDNISolone SS 40 MG/ML VIAL IVP SCH ×2 (08:57→20:11)
[2022-12-28] MEDS: PREGABALIN 25 MG CAP PO SCH ×2 (08:57→21:36)
[2022-12-28] MEDS: amLODIPine 5 MG TAB PO SCH (08:58)
[2022-12-28] MEDS: POTASSIUM CHLORIDE 10 MEQ TABER PO SCH (08:59)
[2022-12-28] MEDS: DOCUSATE SODIUM 100 MG GELCAP PO SCH (09:00)
[2022-12-28] MEDS: GLIMEPIRIDE 2 MG TAB PO SCH (09:00)
[2022-12-28] MEDS: DONEPEZIL 10 MG TAB PO SCH (09:03)
[2022-12-28] MEDS: FUROSEMIDE 40 MG/4 ML VIAL IVP SCH ×2 (09:04→20:11)
[2022-12-28 12:00] VITALS: BP 124/66
[2022-12-28 13:16] LABS: BASOPHILS % (AUTO) 0.1 % (0.0-2.0); HEMATOCRIT 38.9 % (36-48); HEMOGLOBIN 13.2 g/dL (12.0-16.0); LYMPHOCYTES # (AUTO) 0.6 K/uL (2.5-16.5); LYMPHOCYTES % (AUTO) 3.4 % (20.5-51.1); MEAN CORPUSCULAR HEMOGLOBIN 30 pg (27-31); MEAN CORPUSCULAR HGB CONC 34 g/dL (33-37); MEAN CORPUSCULAR VOLUME 89.3 fL (80-94); MONOCYTES # (AUTO) 0.4 K/uL (0.8-1.0); NEUTROPHILS # (AUTO) 16.5 K/uL (1.8-7.7); NEUTROPHILS % (AUTO) 94.5 % (42.2-75.2); PLATELET COUNT (AUTO) 221 K/uL (140-450); RED BLOOD CELL COUNT(AUTO) 4.36 MIL/uL (4.20-5.40); WHITE BLOOD COUNT (AUTO) 17.5 K/uL (4.8-10.8)
[2022-12-28 13:32] LABS: ANION GAP 17.6 (8-16); CARBON DIOXIDE 25.3 mmol/L (21-32); CHLORIDE 95 mmol/L (98-107); CREATININE 1.4 mg/dL (0.6-1.3); POTASSIUM 3.9 mmol/L (3.5-5.1); SODIUM SERUM 134 mmol/L (136-145); UREA NITROGEN, BLOOD 48 mg/dL (7-18)
[2022-12-28 13:39] LABS: GLUCOSE 450 mg/dL (74-106)
[2022-12-28 16:00] VITALS: BP 132/60
--- NOTE | 2022-12-28 19:20 | NUR ---
RECEIVED ENDORSEMENT FROM HIGINIO MENARD (REGISTRY), PATIENT WAS STABLE IN BED. PATIENT A&O X 4. AWARE OF WHY SHE IS IN THE HOSPITAL. DENIES ANY PAIN/DISCOMFORT AT THIS TIME. PATIENT HAS HAD NO COUGH TODAY OR AT THIS TIME. PATIENT WAS SITTING ON THE SIDE OF THE BED ON HER PHONE. PATIENT WAS ON ROOM AIR WITH NO RESPIRATORY DISTRESS. IV SITE PATENT, CLEAN AND NON TENDER TO TOUCH. CALL LIGHT WITHIN REACH FOR ASSISTANCE. [email or web address]
[2022-12-28 20:00] VITALS: BP 118/61
--- NOTE | 2022-12-28 20:00 | NUR ---
Patient's Plan of Care was discussed and reviewed with THEODORA WEEMS: Addendum: 12/28/22 at 2020 by Nikki Vu RN Patient's Plan of Care was discussed and reviewed with LEROY WEEMS:
[2022-12-28] MEDS: INSULIN LANTUS 100 UNITS/ML 10 ML VIAL SUBQ SCH (21:41)
[2022-12-28] MEDS: ATORVASTATIN 20 MG TAB PO SCH (21:41)
[2022-12-28] MEDS: MONTELUKAST SODIUM 10 MG TAB PO SCH (21:45)
--- NOTE | 2022-12-28 22:54 | NUR ---
PATIENT IS IN BED ASLEEP. ALL MEDICATION WERE GIVEN. NURSING EXPLAINED THE IMPORTANCE OF ALL MEDICATIONS, SIDE EFFECTS, AND THERAPEUTIC VALUES. PATIENT STATED SHE UNDERSTOOD AND AGREED. [email or web address]
[2022-12-29] VITALS: BP 124/61
[2022-12-29] MEDS: ALBUTEROL 0.083% 2.5 MG/3 ML NEBU INH SCH ×4 (01:00→19:29)
[2022-12-29 04:00] VITALS: BP 126/54
--- NOTE | 2022-12-29 06:01 | NUR ---
DURING ROUNDS NURSING NOTED PATIENT IN BED ASLEEP. NO S/S OF PAIN/DISCOMFORT. NO S/S OF RESPIRATORY DISTRESS. CALL LIGHT WITHIN REACH. [email or web address]
[2022-12-29 06:13] LABS: BASOPHILS % (AUTO) 0.1 % (0.0-2.0); HEMOGLOBIN 13.7 g/dL (12.0-16.0); LYMPHOCYTES # (AUTO) 0.9 K/uL (2.5-16.5); LYMPHOCYTES % (AUTO) 6.6 % (20.5-51.1); MEAN CORPUSCULAR HEMOGLOBIN 30 pg (27-31); MEAN CORPUSCULAR HGB CONC 34 g/dL (33-37); MEAN CORPUSCULAR VOLUME 88.2 fL (80-94); MONOCYTES # (AUTO) 0.4 K/uL (0.8-1.0); NEUTROPHILS # (AUTO) 12.6 K/uL (1.8-7.7); NEUTROPHILS % (AUTO) 90.3 % (42.2-75.2); PLATELET COUNT (AUTO) 220 K/uL (140-450); RED BLOOD CELL COUNT(AUTO) 4.53 MIL/uL (4.20-5.40); RED CELL DISTRIBUTION WIDTH 14.3 % (11.6-13.7)
[2022-12-29 06:19] LABS: ANION GAP 17.4 (8-16); CARBON DIOXIDE 25.8 mmol/L (21-32); CHLORIDE 98 mmol/L (98-107); CREATININE 1.1 mg/dL (0.6-1.3); GLUCOSE 260 mg/dL (74-106); POTASSIUM 4.2 mmol/L (3.5-5.1); SODIUM SERUM 137 mmol/L (136-145); UREA NITROGEN, BLOOD 45 mg/dL (7-18)
[2022-12-29] MEDS: INSULIN LISPRO SLIDING SCALE 100 UNITS/ML VIAL SUBQ PRN ×5 (06:49→20:15)
[2022-12-29] MEDS: BLOOD GLUCOSE MONITORING 1 DEV DEV FS SCH ×4 (06:49→20:13)
--- NOTE | 2022-12-29 06:57 | NUR ---
ENDORSED PATIENT TO HIGINIO MENARD (REGISTRY) FOR CONTINUITY OF CARE, PATIENT WAS STABLE DURING SHIFT REPORT. [email or web address]
[2022-12-29 08:00] VITALS: BP 127/67
[2022-12-29] MEDS: INSULIN LISPRO 100 UNITS/ML VIAL SUBQ SCH ×3 (08:17→16:34)
[2022-12-29] MEDS: DONEPEZIL 10 MG TAB PO SCH (08:25)
[2022-12-29] MEDS: methylPREDNISolone SS 40 MG/ML VIAL IVP SCH ×2 (08:25→21:00)
[2022-12-29] MEDS: FUROSEMIDE 40 MG/4 ML VIAL IVP SCH ×2 (08:25→21:00)
[2022-12-29] MEDS: amLODIPine 5 MG TAB PO SCH (08:26)
[2022-12-29] MEDS: DOCUSATE SODIUM 100 MG GELCAP PO SCH ×2 (08:26→20:41)
[2022-12-29] MEDS: GLIMEPIRIDE 2 MG TAB PO SCH (08:26)
[2022-12-29] MEDS: POTASSIUM CHLORIDE 10 MEQ TABER PO SCH (08:26)
[2022-12-29] MEDS: PREGABALIN 25 MG CAP PO SCH ×2 (08:27→20:12)
[2022-12-29] MEDS: APIXABAN 2.5 MG TAB PO SCH ×2 (08:28→20:12)
[2022-12-29 12:00] VITALS: BP 129/60
[2022-12-29 16:00] VITALS: BP 133/64
--- NOTE | 2022-12-29 19:30 | NUR ---
RECEIVED REPORT FROM DAY SHIFT NURSE DERIAN SYLVESTER FOR CONTINUITY OF CARE. PT AWAKE IN BED. ON SOUNDING DEVICE OPERATOR. RESPIRATIONS EVEN DN UNLABORED ON 3L NC. NO COMPLAINTS OF PAIN. NO DISTRESS NOTED. POC DISCUSSED WITH PT AND DERIAN HILLIARD. CALL LIGHT WITHIN REACH. SAFETY PRECAUTIONS IN PLACE.
[2022-12-29 20:00] VITALS: BP 141/69
--- NOTE | 2022-12-29 20:00 | NUR ---
Patient's Plan of Care was discussed and reviewed with HAMIDA WEEMS:
[2022-12-29] MEDS: MONTELUKAST SODIUM 10 MG TAB PO SCH (20:11)
[2022-12-29] MEDS: ATORVASTATIN 20 MG TAB PO SCH (20:11)
--- NOTE | 2022-12-29 20:12 | NUR ---
ADMINISTERED DUE MEDS. PT REQUESTED FOR STOOL SOFTENER. PER PT SHE USUALLY TOOK IT AT NIGHT AND THAT SHE REFUSED THE ONE SCHEDULED IN THE MORNING. DR GRIJALVA WAS INFORMED. AWAITING FOR RESPONSE.
[2022-12-29] MEDS: INSULIN LANTUS 100 UNITS/ML 10 ML VIAL SUBQ SCH (20:14)
--- NOTE | 2022-12-29 20:41 | NUR ---
STOOL SOFTENER ADMINISTERED PER MD ORDER.
[2022-12-30] VITALS: BP 132/69
[2022-12-30 04:00] VITALS: BP 142/68
[2022-12-30] MEDS: BLOOD GLUCOSE MONITORING 1 DEV DEV FS SCH ×4 (06:35→20:40)
[2022-12-30] MEDS: INSULIN LISPRO SLIDING SCALE 100 UNITS/ML VIAL SUBQ PRN ×3 (06:36→20:42)
--- NOTE | 2022-12-30 06:38 | NUR ---
SLIDING SCALE INSULIN ADMINISTERED. PT TOLERATED WELL. DENIES PAIN. NO DISTRESS NOTED.
--- NOTE | 2022-12-30 07:06 | NUR ---
ENDORSED PT TO DERIAN DAVID FOR CONTINUITY OF CARE. ALL NEEDS MET THROUGHOUT SHIFT. PT IS STABLE.
--- NOTE | 2022-12-30 07:06 | NUR ---
RECEIVED REPORT FROM NIGHTSOKFT NURSE HAMIDA FOR CONTINUITY OF CARE. PT IN STABLE CONDITION.
[2022-12-30] MEDS: INSULIN LISPRO 100 UNITS/ML VIAL SUBQ SCH ×3 (07:30→16:50)
[2022-12-30 08:00] VITALS: BP 155/77
[2022-12-30] MEDS: ALBUTEROL 0.083% 2.5 MG/3 ML NEBU INH SCH ×2 (08:03→20:54)
--- NOTE | 2022-12-30 08:09 | NUR ---
MESSAGED DR. PEÑA ABOUT NO NEW LABS FOR PT. RECEIVED NEW ORDER.
[2022-12-30] MEDS: PREGABALIN 25 MG CAP PO SCH ×2 (08:45→20:33)
[2022-12-30] MEDS: methylPREDNISolone SS 40 MG/ML VIAL IVP SCH ×2 (08:45→21:38)
[2022-12-30] MEDS: amLODIPine 5 MG TAB PO SCH (08:46)
[2022-12-30] MEDS: POTASSIUM CHLORIDE 10 MEQ TABER PO SCH (08:47)
[2022-12-30] MEDS: FUROSEMIDE 40 MG/4 ML VIAL IVP SCH ×2 (08:47→21:39)
--- NOTE | 2022-12-30 08:47 | NUR ---
REASSESSED PT'S BLOOD SUGAR, READ AT 299. MEDICATED WITH SCHEDULED 8 UNITS OF HUMALOG.
[2022-12-30] MEDS: GLIMEPIRIDE 2 MG TAB PO SCH (08:48)
[2022-12-30] MEDS: DONEPEZIL 10 MG TAB PO SCH (08:49)
[2022-12-30] MEDS: APIXABAN 2.5 MG TAB PO SCH ×2 (08:58→20:35)
[2022-12-30 12:00] VITALS: BP 147/93
[2022-12-30 16:00] VITALS: BP 142/70
--- NOTE | 2022-12-30 16:40 | NUR ---
PT BLOOD SUGAR 432, NOTIFIED DR. PEÑA FOR FURTHER INSTRUCTION. Addendum: 12/30/22 at 1654 by Tiffany Ramirez RN PER DR. PEÑA, GIVE PT TOTAL OF 15 UNITS OF INSULIN LISPRO.
--- NOTE | 2022-12-30 19:04 | NUR ---
ENDORSED PT TO NIGHTSSCFT NURSE HAMIDA FOR CONTINUITY OF CARE. PT IN STABLE CONDITION.
--- NOTE | 2022-12-30 19:05 | NUR ---
RECEIVED REPORT FROM DERIAN MILLER FOR CONTINUITY OF CARE. PT AWAKE IN BED. AMBULATORY. ON TECHNICIAN ANATOMIC PATHOLOGY. RESPIRATIONS EVEN AND UNLABORED ON 2L NC SATTING AT 95%. NO DISTRESS NOTED. DENIES PAIN. INITIAL ASSESSMENT DONE. POC DISCUSSED WITH PT AND DERIAN RUSS. CALL LIGHT WITHIN REACH. SAFETY PRECAUTIONS IN PLACE.
[2022-12-30 20:00] VITALS: BP 145/73
[2022-12-30] MEDS: MONTELUKAST SODIUM 10 MG TAB PO SCH (20:35)
[2022-12-30] MEDS: DOCUSATE SODIUM 100 MG GELCAP PO SCH (20:35)
[2022-12-30] MEDS: ATORVASTATIN 20 MG TAB PO SCH (20:36)
[2022-12-30] MEDS: INSULIN LANTUS 100 UNITS/ML 10 ML VIAL SUBQ SCH (20:40)
--- NOTE | 2022-12-30 20:40 | NUR ---
ADMINISTERED DUE MEDS. PT TOLERATED WELL.
--- NOTE | 2022-12-30 21:00 | NUR ---
Patient's Plan of Care was discussed and reviewed with SPA DIRECTOR/FINANCE: HAMIDA DUARTE
[2022-12-31] VITALS: BP 127/58
--- NOTE | 2022-12-31 00:02 | NUR ---
V/S TAKEN. WITHIN NORMAL LIMITS. PT NO COMPLAINTS OF ANY DISCOMFORT. PT BACK TO SLEEP.
[2022-12-31] MEDS: ALBUTEROL 0.083% 2.5 MG/3 ML NEBU INH SCH ×4 (01:00→19:26)
[2022-12-31 04:00] VITALS: BP 124/58
--- NOTE | 2022-12-31 04:09 | NUR ---
[facility]N TX NOT GIVEN AT 0100 SCHEDULED TIME. RT WAS CALLED AWAY/NOT AVAILABLE TO ADMINISTER
[2022-12-31 05:27] LABS: ANION GAP 18.2 (8-16); CARBON DIOXIDE 24.8 mmol/L (21-32); CHLORIDE 97 mmol/L (98-107); CREATININE 1.3 mg/dL (0.6-1.3); GLUCOSE 273 mg/dL (74-106); SODIUM SERUM 136 mmol/L (136-145); UREA NITROGEN, BLOOD 48 mg/dL (7-18)
[2022-12-31 05:29] LABS: BASOPHILS % (AUTO) 0.1 % (0.0-2.0); HEMATOCRIT 43.1 % (36-48); HEMOGLOBIN 14.6 g/dL (12.0-16.0); LYMPHOCYTES # (AUTO) 0.9 K/uL (2.5-16.5); MEAN CORPUSCULAR HEMOGLOBIN 30 pg (27-31); MEAN CORPUSCULAR HGB CONC 34 g/dL (33-37); MEAN CORPUSCULAR VOLUME 90.2 fL (80-94); MONOCYTES # (AUTO) 0.4 K/uL (0.8-1.0); MONOCYTES % (AUTO) 3.1 % (1.7-9.3); NEUTROPHILS # (AUTO) 12.1 K/uL (1.8-7.7); NEUTROPHILS % (AUTO) 89.8 % (42.2-75.2); PLATELET COUNT (AUTO) 214 K/uL (140-450); RED BLOOD CELL COUNT(AUTO) 4.79 MIL/uL (4.20-5.40); RED CELL DISTRIBUTION WIDTH 14.3 % (11.6-13.7); WHITE BLOOD COUNT (AUTO) 13.5 K/uL (4.8-10.8)
[2022-12-31] MEDS: INSULIN LISPRO SLIDING SCALE 100 UNITS/ML VIAL SUBQ PRN ×4 (06:41→20:58)
[2022-12-31] MEDS: BLOOD GLUCOSE MONITORING 1 DEV DEV FS SCH ×4 (06:41→20:55)
--- NOTE | 2022-12-31 06:46 | NUR ---
SLIDING SCALE INSULIN ADMINISTERED. PT NO DISTRESS NOTED. NO COMPLAINTS OF PAIN. SAFETY PRECAUTIONS IN PLACE.
--- NOTE | 2022-12-31 07:04 | NUR ---
RECEIVED REPORT FROM NIGHT NURSE HAMIDA FOR CONTINUITY OF CARE. INITIAL ASSESSMENT DONE. RESP. EVEN AND UNLABORED. ON CONT. O2 @ 2L/MIN N/C. IV SITE INTACT. CALL LIGHT KEPT WITHIN REACH. WILL CONTINUE TO MONITOR.
--- NOTE | 2022-12-31 07:06 | NUR ---
GAVE BEDSIDE REPORT TO DANK KHALIL. PT WITH RT AT BEDSIDE FOR ONGOING BREATHING TREATMENT. PT IN STABLE CONDITION.
[2022-12-31] MEDS: INSULIN LISPRO 100 UNITS/ML VIAL SUBQ SCH ×3 (07:30→16:54)
[2022-12-31 08:00] VITALS: BP 131/79
[2022-12-31] MEDS: APIXABAN 2.5 MG TAB PO SCH ×2 (08:39→20:53)
--- NOTE | 2022-12-31 08:39 | NUR ---
SCHEDULED MEDICATIONS GIVEN. TOLERATING WELL.
[2022-12-31] MEDS: POTASSIUM CHLORIDE 10 MEQ TABER PO SCH (08:45)
[2022-12-31] MEDS: DONEPEZIL 10 MG TAB PO SCH (08:46)
[2022-12-31] MEDS: amLODIPine 5 MG TAB PO SCH (08:46)
[2022-12-31] MEDS: GLIMEPIRIDE 2 MG TAB PO SCH (08:47)
[2022-12-31] MEDS: FUROSEMIDE 40 MG/4 ML VIAL IVP SCH (08:47)
[2022-12-31] MEDS: methylPREDNISolone SS 40 MG/ML VIAL IVP SCH ×2 (08:47→20:28)
--- NOTE | 2022-12-31 08:47 | NUR ---
SCHEDULED IVP MEDICATIONS WAS GIVEN BY HIGINIO MENARD. TOLERATING WELL.
[2022-12-31 12:00] VITALS: BP 138/70
--- NOTE | 2022-12-31 12:34 | NUR ---
BS CHECKED 406. DR. JOHNSON NOTIFIED WITH NEW WITH NEW ORDERS: INCREASED HUMALOG 15 UNITS TIDAC, INSULIN PER SLIDING SCALE, HEMOGLOBIN AIC. NOTED AND CARRIED OUT. PT MADE AWARE. INSULIN WAS GIVEN ORDERED. TOLERATING WELL.
--- NOTE | 2022-12-31 14:50 | NUR ---
RECEIVED CALLED FROM RT STATED PT TOLERATED ON 2L/NC SATTING 96-98%.
[2022-12-31 16:00] VITALS: BP 143/66
--- NOTE | 2022-12-31 16:58 | NUR ---
PT COMPLAINT OF BURNING TO BOTH EYES. NO REDNESS, NO DRAINAGE NOTED. DR. JOHNSON NOTIFIED, AWAITING FOR RESPONSE.
[2022-12-31] MEDS: FUROSEMIDE 40 MG TAB PO SCH (17:10)
--- NOTE | 2022-12-31 17:10 | NUR ---
SCHEDULED PO MEDICATION GIVEN. TOLERATING WELL.
--- NOTE | 2022-12-31 17:10 | NUR ---
RECEIVED NEW ORDER FROM DR. JOHNSON ARTIFICIAL TEARS 1 DROP TO BOTH EYES FOR DRY EYES. NOTED AND CARRIED OUT.
[2022-12-31] MEDS ORDERED: POLYVINYL ALCOHOL 1.4% OP 15 ML SOL BOTH EYES PRN (17:15)
[2022-12-31] MEDS: REFRESH LIQUIGEL OP PRN (17:43)
--- NOTE | 2022-12-31 17:43 | NUR ---
PRN ARTIFICIAL TEARS GEL WAS GIVEN, 1 DROP TO BOTH EYES. TOLERATING WELL.
--- NOTE | 2022-12-31 19:05 | NUR ---
BEDSIDE REPORT GIVEN TO HAMIDA FOR CONTINUITY OF CARE. [facility] NEW [facility], ARTIFICIAL TEARS FOR DRY EYES PRN. REMAINS STABLE.
--- NOTE | 2022-12-31 19:06 | NUR ---
RECEIVED REPORT FROM NURSE SIMRAN FOR CONTINUITY OF CARE. PT AWAKE, AMBULATING AT THE HALLWAY. PER PT, SHE NEEDED SOME WALK TO HELP HER DEFECATE. O2 SATTING AT 96%. NO DISTRESS NOTED. ENSURE PT'S SAFETY. 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 POC DISCUSSED WITH PT AND DERIAN HILLIARD. SAFETY PRECAUTIONS IN PLACE.
[2022-12-31 20:00] VITALS: BP 147/71
--- NOTE | 2022-12-31 20:00 | NUR ---
Patient's Plan of Care was discussed and reviewed with HAMIDA WEEMS:
[2022-12-31] MEDS: MONTELUKAST SODIUM 10 MG TAB PO SCH (20:51)
[2022-12-31] MEDS: DOCUSATE SODIUM 100 MG GELCAP PO SCH (20:51)
[2022-12-31] MEDS: ATORVASTATIN 20 MG TAB PO SCH (20:51)
[2022-12-31] MEDS: INSULIN LANTUS 100 UNITS/ML 10 ML VIAL SUBQ SCH (20:54)
--- NOTE | 2022-12-31 21:03 | NUR ---
ADMINISTERED DUE MEDS. PT TOLERATED WELL.
[2023-01-01] VITALS: BP 138/69
[2023-01-01] MEDS: ALBUTEROL 0.083% 2.5 MG/3 ML NEBU INH SCH ×3 (01:00→14:14)
[2023-01-01 04:00] VITALS: BP 126/67
--- NOTE | 2023-01-01 04:03 | NUR ---
V/S TAKEN. WITHIN NORMAL LIMITS. NO DISCOMFORT/DISTRESS NOTED.
[2023-01-01] MEDS: REFRESH LIQUIGEL OP PRN (05:15)
[2023-01-01] MEDS: BLOOD GLUCOSE MONITORING 1 DEV DEV FS SCH ×2 (06:31→11:24)
[2023-01-01] MEDS: INSULIN LISPRO SLIDING SCALE 100 UNITS/ML VIAL SUBQ PRN ×2 (06:31→11:15)
[2023-01-01] MEDS: INSULIN LISPRO 100 UNITS/ML VIAL SUBQ SCH ×2 (06:41→11:17)
--- NOTE | 2023-01-01 06:45 | NUR ---
BLOOD SUGAR CHECK DONE. ADMINISTERED INSULIN. SNACKS OFFERED AND EATEN BY PT.
--- NOTE | 2023-01-01 07:05 | NUR ---
RECEIVE REPORT FROM NIGHT NURSE HAMIDA FOR CONTINUITY OF CARE. INITIAL ASSESSMENT DONE. ON CONT. O2 @ 2L/MIN NC. IV SITE INTACT. NOT IN ANY DISTRESS. CALL LIGHT KEPT WITHIN REACH. WILL CONTINUE TO MONITOR.
--- NOTE | 2023-01-01 07:07 | NUR ---
GAVE BEDSIDE REPORT TO DANK KHALIL FOR CONTINUITY OF CARE. ALL NEEDS MET THROUGHOUT SHIFT. PT IS STABLE.
[2023-01-01 08:00] VITALS: BP 131/74
--- NOTE | 2023-01-01 08:00 | NUR ---
Patient's Plan of Care was discussed and reviewed with DANK: JATINDER
[2023-01-01] MEDS: amLODIPine 5 MG TAB PO SCH (09:07)
[2023-01-01] MEDS: POTASSIUM CHLORIDE 10 MEQ TABER PO SCH (09:14)
[2023-01-01] MEDS: DONEPEZIL 10 MG TAB PO SCH (09:14)
[2023-01-01] MEDS: GLIMEPIRIDE 2 MG TAB PO SCH (09:15)
[2023-01-01] MEDS: FUROSEMIDE 40 MG TAB PO SCH (09:15)
--- NOTE | 2023-01-01 09:15 | NUR ---
SCHEDULED PO MEDICATIONS GIVEN. TOLERATING WELL.
[2023-01-01] MEDS: methylPREDNISolone SS 40 MG/ML VIAL IVP SCH (09:43)
--- NOTE | 2023-01-01 09:43 | NUR ---
SCHEDULED SOLU MEDROL IVP WAS GIVEN BY ARVIND MENARD. TOLERATING WELL.
--- NOTE | 2023-01-01 11:17 | NUR ---
BS CHECKED 210. INSULIN WAS GIVEN ORDERED. TOLERATING WELL.
[2023-01-01 12:00] VITALS: BP 121/78
[2023-01-01] MEDS ORDERED: PRED20TA5 PO (15:10)
[2023-01-01] MEDS ORDERED: FURO-570 PO (15:10)
[2023-01-01] MEDS ORDERED: APIX5TAB PO (15:10)
[2023-01-01] MEDS ORDERED: AMLO5TAB PO (15:10)
--- NOTE | 2023-01-01 16:07 | NUR ---
HUBERT TAO CALLED DR LARSEN'S OFFICE LOCATED AT [address] [place] [address] SPOKE WITH KYLAH AND MADE A FOLLOW UP APPOINTMENT FOR December AT 1345. PT AWARE OF APPOINTMENTS AND SO ARE DAUGHTERS.
--- NOTE | 2023-01-01 16:15 | NUR ---
PT LEFT. DISCHARGE TO HOME. TRANSPORTED BY PRIVATE CAR PER WHEELCHAIR. ACCOMPANIED BY SISTER. IRIS Richardson. RESP. EVEN AND UNLABORED. DISCHARGE PAPERWORK DISCUSS AND SIGNED BY PT. PERSONAL BELONGINGS TAKEN. REMAINS STABLE.
== END 2023-01-01 16:15 | disposition home or self-care (01) | DRG 291 ==
LOC: MED 16:47 → INTOOBSV 20:30 → MTU 20:30 → MMU 20:46 → OBSVTOIN 12-26 11:13
PROVIDERS: ADMIT Hospitalist; ATTEND Internal Medicine Cardiovascular Disease
DX: I11.0 Hypertensive heart disease with heart failure (principal); I50.33 Acute on chronic diastolic (congestive) heart failure; I48.20 Chronic atrial fibrillation, unspecified; M06.9 Rheumatoid arthritis, unspecified; E11.65 Type 2 diabetes mellitus with hyperglycemia; E78.5 Hyperlipidemia, unspecified; E66.9 Obesity, unspecified; J20.9 Acute bronchitis, unspecified; T38.0X5A Adverse effect of glucocorticoids and synthetic analogues, initial encounter; Z20.822 Contact with and (suspected) exposure to COVID-19; Z79.01 Long term (current) use of anticoagulants; Y92.89 Other specified places as the place of occurrence of the external cause; Z79.899 Other long term (current) drug therapy; Z68.37 Body mass index [BMI] 37.0-37.9, adult
CPT/HCPCS: G0378 ×28; 36415; 71045; 71250; 80048; 80053; 82948; 83036; 83690; 83735; 83880; 84484; 85025; 87081; 93005; 94640; J1815; J1940; J2920; J7613; J7644; Q0092

== ENCOUNTER 2023-01-15 15:04 | Emergency (ER) | payer OTHER, MEDICAID ==
[~2023-01-15] VITALS: Ht 160 cm; Wt 94.3 kg
[~2023-01-15 15:04] MED LIST changes: +AMLO5TAB PO; -BENA20TA PO; +MONT-72 PO; -MONT10TA35 PO
[2023-01-15 15:12] VITALS: BP 113/70
[2023-01-15] MEDS ORDERED: NACL 0.9% 1,000 ML IV ONE (15:40)
[2023-01-15] MEDS ORDERED: INSULIN REGULAR, HUMAN 100 UNIT/ML VIAL SUBQ ONE (15:45)
--- NOTE | 2023-01-15 15:46 | NUR ---
77 YO/F PRESENTS TO ED W C/O ELEVATED BLOOD SUGAR READINGS X2 WEEKS OF APPROXIMATELY >400BS, + INCREASING BLURRY VISION, AND BL FLANK PAIN 8/10 CONSTANT PRESSURE LIKE NON-RAD. DENIES CHEST PAIN, SOB, HEAD INJURY, DIZZINESS, URINARY OR OTHER YSMPTOMS. PMH: DM, HTN, RHEUMATOID , HERNIAS, ALLERGIES: DENIES
--- NOTE | 2023-01-15 15:57 | NUR ---
PT ACCU CHECK 291, PER ERMD ANA CRISTINA TO NOT GIVE THE ORDERED INSULIN.
[2023-01-15 16:07] LABS: BASOPHILS # (AUTO) 0.1 K/uL (0.00-0.22); EOSINOPHILS # (AUTO) 0.3 K/uL (0-0.4); EOSINOPHILS % (AUTO) 3.2 % (0.0-4.0); HEMATOCRIT 40.2 % (36-48); HEMOGLOBIN 13.7 g/dL (12.0-16.0); LYMPHOCYTES # (AUTO) 1.9 K/uL (2.5-16.5); LYMPHOCYTES % (AUTO) 23.9 % (20.5-51.1); MEAN CORPUSCULAR HEMOGLOBIN 31 pg (27-31); MEAN CORPUSCULAR HGB CONC 34 g/dL (33-37); MEAN CORPUSCULAR VOLUME 90.1 fL (80-94); MONOCYTES # (AUTO) 0.5 K/uL (0.8-1.0); MONOCYTES % (AUTO) 6.2 % (1.7-9.3); NEUTROPHILS # (AUTO) 5.2 K/uL (1.8-7.7); NEUTROPHILS % (AUTO) 65.7 % (42.2-75.2); PLATELET COUNT (AUTO) 169 K/uL (140-450); RED BLOOD CELL COUNT(AUTO) 4.46 MIL/uL (4.20-5.40); RED CELL DISTRIBUTION WIDTH 13.9 % (11.6-13.7); WHITE BLOOD COUNT (AUTO) 7.9 K/uL (4.8-10.8)
[2023-01-15 16:18] LABS: APPEARANCE,URINE CLEAR (CLEAR); BILIRUBIN,URINE NEGATIVE (NEGATIVE); BLOOD, URINE NEGATIVE (NEGATIVE); COLOR,URINE YELLOW (YELLOW); LEUKOCYTE ESTERASE ,URINE NEGATIVE (NEGATIVE); NITRITE, URINE NEGATIVE (NEGATIVE); UGLUCOSE 3+ (NEGATIVE)
[2023-01-15 16:27] LABS: ALBUMIN 3.3 g/dL (3.4-5.0); ANION GAP 14.5 (8-16); ASPARTATE AMINOTRANSFERASE 14 U/L (15-37); CARBON DIOXIDE 23.6 mmol/L (21-32); CHLORIDE 97 mmol/L (98-107); CREATININE 1.1 mg/dL (0.6-1.3); GLUCOSE 311 mg/dL (74-106); LIPASE 137 U/L (73-393); POTASSIUM 4.1 mmol/L (3.5-5.1); SODIUM SERUM 131 mmol/L (136-145); TOTAL BILIRUBIN 0.6 mg/dL (0.0-1.0); UREA NITROGEN, BLOOD 25 mg/dL (7-18)
[2023-01-15] MEDS ORDERED: KETOROLAC 15 MG/ML VIAL IM ONE (17:00)
--- NOTE | 2023-01-15 17:00 | NUR ---
pt co of ongoing flank pain, requesting pain medication, ayaz hernández made aware.
--- NOTE | 2023-01-15 17:13 | NUR ---
pt reports blurry vision resolved after ermd eye exam, and reports feelihng overall better.
[2023-01-15 17:15] VITALS: BP 116/56
== END 2023-01-15 17:15 | disposition home or self-care (01) ==
LOC: MED 15:04
DX: E11.65 Type 2 diabetes mellitus with hyperglycemia (principal); R10.9 Unspecified abdominal pain; H53.8 Other visual disturbances; I25.10 Atherosclerotic heart disease of native coronary artery without angina pectoris; Z79.4 Long term (current) use of insulin; Z79.899 Other long term (current) drug therapy
CPT/HCPCS: 36415; 80053; 81003; 83690; 85025; 93005; 96372; 99285; J1885; J1815

== ENCOUNTER 2023-06-15 04:36 | Inpatient (IN) | payer OTHER, MEDICAID ==
[2023-06-15] VITALS (7 sets, daily range): BP systolic 109; BP diastolic 60; PULSE 60; RESP 17; TEMP 97.8; O2SAT 95–98
[~2023-06-15] VITALS: Ht 157.5 cm; Wt 94.0 kg
[~2023-06-15 04:36] MED LIST changes: +NEBI2.5T PO; -[UNRECOGNIZED DRUG - CODE] PO
[2023-06-15] MEDS ORDERED: NACL 0.9% 1,000 ML IV SCH (05:00)
[2023-06-15 06:04] LABS: BASOPHILS % (AUTO) 0.7 % (0.0-2.0); EOSINOPHILS # (AUTO) 0.5 K/uL (0-0.4); EOSINOPHILS % (AUTO) 8.7 % (0.0-4.0); HEMATOCRIT 34.8 % (36-48); HEMOGLOBIN 11.6 g/dL (12.0-16.0); LYMPHOCYTES # (AUTO) 1.5 K/uL (2.5-16.5); LYMPHOCYTES % (AUTO) 24.5 % (20.5-51.1); MEAN CORPUSCULAR HEMOGLOBIN 30 pg (27-31); MEAN CORPUSCULAR HGB CONC 33 g/dL (33-37); MONOCYTES # (AUTO) 0.6 K/uL (0.8-1.0); MONOCYTES % (AUTO) 9.3 % (1.7-9.3); NEUTROPHILS # (AUTO) 3.5 K/uL (1.8-7.7); NEUTROPHILS % (AUTO) 56.8 % (42.2-75.2); PLATELET COUNT (AUTO) 200 K/uL (140-450); RED BLOOD CELL COUNT(AUTO) 3.91 MIL/uL (4.20-5.40); RED CELL DISTRIBUTION WIDTH 15.1 % (11.6-13.7); WHITE BLOOD COUNT (AUTO) 6.2 K/uL (4.8-10.8)
[2023-06-15 06:19] LABS: ALANINE AMINOTRANSFERASE 17 U/L (12-78); ALBUMIN 3.2 g/dL (3.4-5.0); ALKALINE PHOSPHATASE 61 U/L (50-136); ANION GAP 14.6 (8-16); ASPARTATE AMINOTRANSFERASE 24 U/L (15-37); CALCIUM 8.2 mg/dL (8.5-10.1); CARBON DIOXIDE 24.4 mmol/L (21-32); CHLORIDE 105 mmol/L (98-107); CREATININE 1.1 mg/dL (0.6-1.3); GLUCOSE 94 mg/dL (74-106); SODIUM SERUM 140 mmol/L (136-145); TOTAL BILIRUBIN 0.6 mg/dL (0.0-1.0); TOTAL PROTEIN, SERUM 7.3 g/dL (6.4-8.2); UREA NITROGEN, BLOOD 18 mg/dL (7-18)
[2023-06-15 06:22] LABS: LIPASE 129 U/L (73-393)
[2023-06-15 08:15] LABS: APPEARANCE,URINE CLEAR (CLEAR); BILIRUBIN,URINE NEGATIVE (NEGATIVE); BLOOD, URINE NEGATIVE (NEGATIVE); COLOR,URINE YELLOW (YELLOW); LEUKOCYTE ESTERASE ,URINE 1+ (NEGATIVE); NITRITE, URINE NEGATIVE (NEGATIVE); PROTEIN,URINE NEGATIVE (NEGATIVE); UGLUCOSE NEGATIVE (NEGATIVE); UROBILINOGEN,URINE 0.2 EU/dL (0.2 - 1)
[2023-06-15 08:32] LABS: BACTERIA,URINE FEW /HPF (None Seen); RBC,URINE 0-5 /HPF (0-5); SQUAMOUS EPITHELIAL CELL,UR 4-10 (MOD) /LPF (0-3 (FEW))
[2023-06-15 08:33] LABS: MUCUS,URINE None Seen /LPF (None Seen); TRICHOMONAS,URINE None Seen /HPF (None Seen); WHITE BLOOD CELL CASTS,URINE None Seen /LPF (None Seen); YEAST,URINE None Seen /HPF (None Seen)
[2023-06-15] MEDS ORDERED: ACETAMINOPHEN EXTRA STRENGTH 500 MG TAB PO ONE (09:30)
[2023-06-15] MEDS ORDERED: VANCOMYCIN 1,000 MG in DEXTROSE 5% 250 ML IV ONE (10:00)
[2023-06-15] MEDS ORDERED: LEVOFLOXACIN 750 MG/D5W PREMIX 150 ML IV ONE (10:00)
[2023-06-15] MEDS ORDERED: cefTRIAXone 1,000 MG VIAL ONE (10:14)
[2023-06-15] MEDS ORDERED: MAG SULF 2000 MG/WATER PREMIX 50 ML IV PRN (10:45)
[2023-06-15] MEDS ORDERED: DOPamine 400 MG/D5W PREMIX 250 ML IV PRN (10:45)
[2023-06-15] MEDS ORDERED: LORazepam 1 MG TAB PO PRN (10:45)
[2023-06-15] MEDS ORDERED: ACETAMINOPHEN 325 MG TAB PO PRN (10:45)
[2023-06-15] MEDS ORDERED: ZOLPIDEM 5 MG TAB PO PRN (10:45)
[2023-06-15] MEDS ORDERED: POTASSIUM CHLORIDE 10 MEQ TABER PO PRN (10:45)
[2023-06-15] MEDS ORDERED: ONDANSETRON 4 MG/2 ML VIAL IVP PRN (10:45)
[2023-06-15] MEDS ORDERED: MORPHINE SULFATE 4 MG/ML SYR IVP PRN (10:45)
[2023-06-15] MEDS ORDERED: KCL 20 MEQ IN 100 mL PREMIX 200 ML IV PRN (10:45)
[2023-06-15] MEDS ORDERED: HYDROcodone/APAP 5/325 MG 1 TAB TAB PO PRN (10:45)
[2023-06-15] MEDS ORDERED: DOCUSATE SODIUM 100 MG GELCAP PO ONE (12:13)
[2023-06-15] MEDS: DOCUSATE SODIUM 100 MG GELCAP PO SCH (12:18)
[2023-06-15] MEDS ORDERED: ATROPINE 0.4 MG/ML VIAL IVP PRN (16:50)
[2023-06-15] MEDS ORDERED: DEXTROSE 50% 50 ML SYR IVP PRN (20:35)
[2023-06-15] MEDS: BLOOD GLUCOSE MONITORING 1 DEV DEV FS SCH (20:57)
[2023-06-15] MEDS: FAMOTIDINE 20 MG/2 ML VIAL IV SCH (20:58)
[2023-06-15] MEDS: INSULIN LISPRO SLIDING SCALE 100 UNITS/ML VIAL SUBQ PRN (20:59)
[2023-06-16 06:48] LABS: BASOPHILS # (AUTO) 0.1 K/uL (0.00-0.22); EOSINOPHILS # (AUTO) 0.5 K/uL (0-0.4); EOSINOPHILS % (AUTO) 7.6 % (0.0-4.0); HEMATOCRIT 34.2 % (36-48); HEMOGLOBIN 11.4 g/dL (12.0-16.0); LYMPHOCYTES # (AUTO) 1.2 K/uL (2.5-16.5); LYMPHOCYTES % (AUTO) 18.8 % (20.5-51.1); MEAN CORPUSCULAR HEMOGLOBIN 30 pg (27-31); MEAN CORPUSCULAR HGB CONC 33 g/dL (33-37); MEAN CORPUSCULAR VOLUME 89.3 fL (80-94); MONOCYTES # (AUTO) 0.6 K/uL (0.8-1.0); MONOCYTES % (AUTO) 8.7 % (1.7-9.3); NEUTROPHILS # (AUTO) 4.1 K/uL (1.8-7.7); NEUTROPHILS % (AUTO) 63.9 % (42.2-75.2); PLATELET COUNT (AUTO) 175 K/uL (140-450); RED BLOOD CELL COUNT(AUTO) 3.83 MIL/uL (4.20-5.40); RED CELL DISTRIBUTION WIDTH 14.6 % (11.6-13.7); WHITE BLOOD COUNT (AUTO) 6.4 K/uL (4.8-10.8)
[2023-06-16 06:57] LABS: ANION GAP 14.4 (8-16); CALCIUM 8.3 mg/dL (8.5-10.1); CARBON DIOXIDE 25.3 mmol/L (21-32); CHLORIDE 107 mmol/L (98-107); CREATININE 1.2 mg/dL (0.6-1.3); GLUCOSE 133 mg/dL (74-106); POTASSIUM 4.7 mmol/L (3.5-5.1); SODIUM SERUM 142 mmol/L (136-145); UREA NITROGEN, BLOOD 22 mg/dL (7-18)
[2023-06-16 07:14] LABS: INR 1.07 (0.8-1.2); PARTIAL THROMBOPLASTIN TIME 27.8 secs (22-35.6); PROTHROMBIN TIME 11.2 secs (10.8-13.4)
[2023-06-16] MEDS: BLOOD GLUCOSE MONITORING 1 DEV DEV FS SCH ×4 (07:51→21:00)
[2023-06-16] MEDS ORDERED: cefTRIAXone 2,000 MG VIAL ONE (07:59)
[2023-06-16] MEDS: FAMOTIDINE 20 MG/2 ML VIAL IV SCH ×2 (08:05→21:10)
[2023-06-16] MEDS: cefTRIAXone 2,000 MG in DEXTROSE 5% 100 ML IV SCH (08:29)
[2023-06-16] MEDS: INSULIN LISPRO SLIDING SCALE 100 UNITS/ML VIAL SUBQ PRN ×2 (11:35→22:15)
[2023-06-16 19:15] VITALS: PULSE 49; RESP 21; O2SAT 93
[2023-06-16 19:30] VITALS: O2SAT 91
[2023-06-16 20:00] VITALS: BP 135/83; PULSE 44; RESP 20; TEMP 97.8; O2SAT 92
[2023-06-16 22:00] VITALS: BP 156/53; PULSE 51; RESP 25; O2SAT 93
[2023-06-17] VITALS (14 sets, daily range): BP systolic 106–159; BP diastolic 37–94; PULSE 38–71; RESP 15–32; TEMP 96.3–99.3; O2SAT 92–100
[2023-06-17 05:43] LABS: BASOPHILS % (AUTO) 0.5 % (0.0-2.0); EOSINOPHILS # (AUTO) 0.2 K/uL (0-0.4); HEMATOCRIT 34.7 % (36-48); HEMOGLOBIN 11.5 g/dL (12.0-16.0); LYMPHOCYTES # (AUTO) 1.2 K/uL (2.5-16.5); LYMPHOCYTES % (AUTO) 21.4 % (20.5-51.1); MEAN CORPUSCULAR HEMOGLOBIN 30 pg (27-31); MEAN CORPUSCULAR HGB CONC 33 g/dL (33-37); MEAN CORPUSCULAR VOLUME 89.7 fL (80-94); MONOCYTES # (AUTO) 0.4 K/uL (0.8-1.0); MONOCYTES % (AUTO) 7.3 % (1.7-9.3); NEUTROPHILS # (AUTO) 3.9 K/uL (1.8-7.7); NEUTROPHILS % (AUTO) 67.8 % (42.2-75.2); PLATELET COUNT (AUTO) 162 K/uL (140-450); RED BLOOD CELL COUNT(AUTO) 3.87 MIL/uL (4.20-5.40); RED CELL DISTRIBUTION WIDTH 14.9 % (11.6-13.7); WHITE BLOOD COUNT (AUTO) 5.7 K/uL (4.8-10.8)
[2023-06-17 05:46] LABS: ANION GAP 16.8 (8-16); CALCIUM 8.3 mg/dL (8.5-10.1); CARBON DIOXIDE 23.8 mmol/L (21-32); CHLORIDE 104 mmol/L (98-107); CREATININE 1.3 mg/dL (0.6-1.3); GLUCOSE 142 mg/dL (74-106); POTASSIUM 4.6 mmol/L (3.5-5.1); SODIUM SERUM 140 mmol/L (136-145); UREA NITROGEN, BLOOD 22 mg/dL (7-18)
[2023-06-17] MEDS: BLOOD GLUCOSE MONITORING 1 DEV DEV FS SCH ×4 (08:16→20:40)
[2023-06-17] MEDS: DOCUSATE SODIUM 100 MG GELCAP PO SCH (08:21)
[2023-06-17] MEDS: FAMOTIDINE 20 MG/2 ML VIAL IV SCH ×2 (08:25→20:43)
[2023-06-17] MEDS: cefTRIAXone 2,000 MG in DEXTROSE 5% 100 ML IV SCH (09:24)
[2023-06-17] MEDS ORDERED: ceFAZolin 1,000 MG VIAL ONE (15:39)
[2023-06-17] MEDS ORDERED: LIDOCAINE/EPI MPF 1%1:200000 30 ML VIAL INJ ONE (15:39)
[2023-06-17] MEDS ORDERED: ceFAZolin 2,000 MG VIAL ONE (15:46)
[2023-06-17] MEDS ORDERED: PROPOFOL 200 MG/20 ML VIAL IV ONE ×2 (16:24→17:01)
[2023-06-17] MEDS ORDERED: ONDANSETRON 4 MG/2 ML VIAL ONE (16:24)
[2023-06-17] MEDS ORDERED: LORazepam 2 MG/ML VIAL IVP SCH (17:54)
[2023-06-18] VITALS (15 sets, daily range): BP systolic 111–155; BP diastolic 47–85; PULSE 60–68; RESP 17–30; TEMP 96.3–97; O2SAT 94–98
[2023-06-18 05:48] LABS: BASOPHILS % (AUTO) 0.6 % (0.0-2.0); EOSINOPHILS # (AUTO) 0.3 K/uL (0-0.4); EOSINOPHILS % (AUTO) 4.9 % (0.0-4.0); HEMATOCRIT 30.7 % (36-48); HEMOGLOBIN 10.3 g/dL (12.0-16.0); LYMPHOCYTES # (AUTO) 1.1 K/uL (2.5-16.5); LYMPHOCYTES % (AUTO) 17.2 % (20.5-51.1); MEAN CORPUSCULAR HEMOGLOBIN 30 pg (27-31); MEAN CORPUSCULAR HGB CONC 34 g/dL (33-37); MEAN CORPUSCULAR VOLUME 89.1 fL (80-94); MONOCYTES # (AUTO) 0.6 K/uL (0.8-1.0); MONOCYTES % (AUTO) 9.8 % (1.7-9.3); NEUTROPHILS # (AUTO) 4.2 K/uL (1.8-7.7); NEUTROPHILS % (AUTO) 67.5 % (42.2-75.2); PLATELET COUNT (AUTO) 147 K/uL (140-450); RED BLOOD CELL COUNT(AUTO) 3.45 MIL/uL (4.20-5.40); RED CELL DISTRIBUTION WIDTH 15.1 % (11.6-13.7); WHITE BLOOD COUNT (AUTO) 6.3 K/uL (4.8-10.8)
[2023-06-18] MEDS: BLOOD GLUCOSE MONITORING 1 DEV DEV FS SCH ×4 (06:36→20:50)
[2023-06-18] MEDS: DOCUSATE SODIUM 100 MG GELCAP PO SCH (08:09)
[2023-06-18] MEDS: FAMOTIDINE 20 MG/2 ML VIAL IV SCH ×2 (08:09→20:46)
[2023-06-18 08:47] LABS: CALCIUM 7.9 mg/dL (8.5-10.1); CARBON DIOXIDE 25.5 mmol/L (21-32); CHLORIDE 107 mmol/L (98-107); CREATININE 1.2 mg/dL (0.6-1.3); GLUCOSE 145 mg/dL (74-106); POTASSIUM 4.5 mmol/L (3.5-5.1); SODIUM SERUM 142 mmol/L (136-145); UREA NITROGEN, BLOOD 18 mg/dL (7-18)
[2023-06-18] MEDS: INSULIN LISPRO SLIDING SCALE 100 UNITS/ML VIAL SUBQ PRN ×2 (11:54→20:47)
[2023-06-18] MEDS ORDERED: LOPERAMIDE 2 MG CAP PO PRN (15:20)
[2023-06-18] MEDS ORDERED: MAG SULF 2000 MG/WATER PREMIX 50 ML IV SCH (16:00)
[2023-06-18] MEDS ORDERED: FUROSEMIDE 20 MG/2 ML VIAL IVP SCH (17:38)
[2023-06-19] VITALS: BP 123/59; PULSE 58; PULSE 64; RESP 20; TEMP 98.1; O2SAT 98
[2023-06-19 04:00] VITALS: BP 129/58; PULSE 64; PULSE 65; PULSE 71; RESP 19; TEMP 98.1; O2SAT 96
[2023-06-19] MEDS: BLOOD GLUCOSE MONITORING 1 DEV DEV FS SCH ×2 (06:27→11:30)
[2023-06-19 06:40] LABS: BASOPHILS % (AUTO) 0.6 % (0.0-2.0); EOSINOPHILS # (AUTO) 0.4 K/uL (0-0.4); EOSINOPHILS % (AUTO) 6.4 % (0.0-4.0); HEMATOCRIT 34.3 % (36-48); HEMOGLOBIN 11.5 g/dL (12.0-16.0); LYMPHOCYTES % (AUTO) 17.2 % (20.5-51.1); MEAN CORPUSCULAR HEMOGLOBIN 30 pg (27-31); MEAN CORPUSCULAR HGB CONC 34 g/dL (33-37); MONOCYTES # (AUTO) 0.5 K/uL (0.8-1.0); MONOCYTES % (AUTO) 9.4 % (1.7-9.3); NEUTROPHILS # (AUTO) 3.7 K/uL (1.8-7.7); NEUTROPHILS % (AUTO) 66.4 % (42.2-75.2); PLATELET COUNT (AUTO) 152 K/uL (140-450); RED BLOOD CELL COUNT(AUTO) 3.86 MIL/uL (4.20-5.40); RED CELL DISTRIBUTION WIDTH 14.9 % (11.6-13.7); WHITE BLOOD COUNT (AUTO) 5.5 K/uL (4.8-10.8)
[2023-06-19 06:58] LABS: ANION GAP 13.3 (8-16); CALCIUM 8.4 mg/dL (8.5-10.1); CARBON DIOXIDE 28.4 mmol/L (21-32); CHLORIDE 104 mmol/L (98-107); GLUCOSE 152 mg/dL (74-106); POTASSIUM 3.7 mmol/L (3.5-5.1); SODIUM SERUM 142 mmol/L (136-145); UREA NITROGEN, BLOOD 14 mg/dL (7-18)
[2023-06-19 08:00] VITALS: BP 127/68; PULSE 65; PULSE 76; RESP 18; RESP 19; TEMP 98.7; O2SAT 100; O2SAT 96
[2023-06-19] MEDS: DOCUSATE SODIUM 100 MG GELCAP PO SCH (09:00)
[2023-06-19] MEDS: FAMOTIDINE 20 MG/2 ML VIAL IV SCH (09:00)
[2023-06-19 10:00] VITALS: O2SAT 95
[2023-06-19] MEDS: INSULIN LISPRO SLIDING SCALE 100 UNITS/ML VIAL SUBQ PRN (12:30)
== END 2023-06-19 13:35 | disposition home or self-care (01) | DRG 228 ==
LOC: MED 04:36 → MTU 10:41 → MIC 06-16 19:15 → MTU 06-18 22:35
PROVIDERS: ADMIT Internal Medicine; ATTEND Internal Medicine
PROC: B51B1ZA Fluoroscopy of Right Lower Extremity Veins using Low Osmolar Contrast, Guidance (ICD-10-PCS; 2023-06-17)
PROC: 02HK3NZ Insertion of Intracardiac Pacemaker into Right Ventricle, Percutaneous Approach (ICD-10-PCS; principal; 2023-06-17 14:00)
DX: I49.5 Sick sinus syndrome (principal); J96.01 Acute respiratory failure with hypoxia; R57.0 Cardiogenic shock; I50.22 Chronic systolic (congestive) heart failure; Z66 Do not resuscitate; F03.90 Unspecified dementia, unspecified severity, without behavioral disturbance, psychotic disturbance, mood disturbance, and anxiety; E66.01 Morbid (severe) obesity due to excess calories; I48.91 Unspecified atrial fibrillation; R19.7 Diarrhea, unspecified; E86.9 Volume depletion, unspecified; E86.0 Dehydration; I11.0 Hypertensive heart disease with heart failure; E11.9 Type 2 diabetes mellitus without complications; Z79.899 Other long term (current) drug therapy; Z79.01 Long term (current) use of anticoagulants; Z68.39 Body mass index [BMI] 39.0-39.9, adult
CPT/HCPCS: 36415; 71045; 80048; 80053; 81001; 82948; 83690; 83735; 83880; 84484; 85025; 85610; 85730; 87040; 87070; 87081; 87086; 93005; 96361; 96374; 96375; 99291; J0690; J0696; J1265; J1644; J1815; J1940; J2001; J2060; J2270; J2405; J2704; J3475; J3490; J7030; J7060; Q0092; Q9967